=== PATIENT | female | born 1950 | race Caucasian/White ===

== ENCOUNTER 2017-08-27 08:12 | Outpatient (CLI) | payer MEDICARE, BC ==
--- NOTE | 2017-08-27 09:17 | MRI ---
MRI OF THE RIGHT KNEE WITHOUT CONTRAST: INDICATION: Right knee pain. COMPARISON: None. FINDINGS: There is mild osteoarthrosis involving the right knee with predominantly affecting the patellofemora l and medial femoral tibial joint compartments. There is a complex but predominantly horizontally or iented tear involving the body and posterior horn of the medial meniscus. There is a horizontally or iented tear involving the body of the posterior horn of the lateral meniscus. There is suspected rad ial tear involving the posterior root of the lateral meniscus on image 14 of series 5. The ACL, PCL, MCL, and LCLC are intact. There is subchondral cyst-like abnormality seen within the proximal fibul a as well as within the patella. The MCL, LCLC, and extensor mechanism are intact. IMPRESSION: 1. Mild osteoarthrosis of the right knee. 2. Medial and lateral meniscal tears. POS: [facility]
== END 2017-08-27 08:13 | disposition home or self-care (01) ==
LOC: TBSIIMAG 08:12
PROVIDERS: ATTEND Orthopaedic Surgery
DX: M25.561 Pain in right knee (principal); M17.11 Unilateral primary osteoarthritis, right knee; S83.241A Other tear of medial meniscus, current injury, right knee, initial encounter; S83.281A Other tear of lateral meniscus, current injury, right knee, initial encounter

== ENCOUNTER 2017-09-29 10:09 | Outpatient (CLI) | payer MEDICARE, BC ==
[2017-09-29 11:52] LABS: #Eosinphils 0.3 thou/uL (0.0-0.7); #Lymphocytes 2.5 thou/uL (1.20-3.40); #Monocytes 0.6 thou/uL (0.11-0.59); #Neutrophils 4.3 thou/uL (1.40-6.50); %Basophils 0.5 % (0.0-1.0); %Eosinophils 3.3 % (0.0-10.0); %Lymphocytes 32.2 % (21.0-51.0); %Monocytes 7.9 % (0.0-10.0); %Neutrophils 56.1 % (42.0-75.0); Hemoglobin 14.2 g/dL (12.0-16.0); Mean Corpuscular HGB CONC 32.4 g/dL (32.0-36.0); Mean Corpuscular Hemoglobin 30.5 pg (27.0-31.0); Mean Corpuscular Volume 94.2 fl (81.0-99.0); Mean Platelet Volume 7.9 fL (7.4-10.4); Platelet Count 235 thou/uL (130-400); Red Blood Cell (RBC) Count 4.66 mill/uL (4.20-5.40); White Blood Cell (WBC) Count 7.7 thou/uL (4.8-10.8)
[2017-09-29 12:08] LABS: Anion Gap 15 mmol/L (10-20); BUN (Urea Nitrogen) 11 mg/dL (9.8-20.1); Calc. Creatinine Clearance 0 mL/min (70-130); Calcium 9.2 mg/dL (7.8-10.44); Carbon Dioxide 28 mmol/L (23-31); Chloride 103 mmol/L (98-107); Estimated GFR-MDRD 73; Glucose 153 mg/dL (80-115); Potassium 4.6 mmol/L (3.5-5.1); Sodium 141 mmol/L (136-145)
--- NOTE | 2017-09-30 23:37 | EKG ---
Test Reason : Blood Pressure : / mmHG Vent. Rate : 058 BPM Atrial Rate : 058 BPM P-R Int : 152 ms QRS Dur : 082 ms QT Int : 418 ms P-R-T Axes : 016 032 039 degrees QTc Int : 410 ms Sinus bradycardia Cannot rule out Anterior infarct , age undetermined Abnormal ECG When compared with ECG of 29-JAN-2017 13:43, No significant change was found Confirmed by Serge RAO ([id number]) on 09/30/2017 11:37:10 PM Referred By: GARETH Confirmed By:Serge RAO
== END 2017-09-29 10:10 | disposition home or self-care (01) ==
LOC: LABBT 10:09
PROVIDERS: ATTEND Orthopaedic Surgery
DX: Z01.812 Encounter for preprocedural laboratory examination (principal); Z01.810 Encounter for preprocedural cardiovascular examination; S83.206A Unspecified tear of unspecified meniscus, current injury, right knee, initial encounter; M17.12 Unilateral primary osteoarthritis, left knee
CPT/HCPCS: 80048; 85025; 93005; 93010

== ENCOUNTER 2017-10-01 06:04 | Day surgery (SDC) | payer MEDICARE, BC ==
[2017-09-29 10:40] VITALS: BMI 42.7
[2017-10-01] MEDS ORDERED: Bupivacaine PF 0.5% 30 ML VIAL ONE (06:25)
[2017-10-01] MEDS ORDERED: methylPREDNISolone Acetate 40 mg/ml Vial ONE (06:25)
[2017-10-01] MEDS ORDERED: Fentanyl 100 MCG/2 ML VIAL ONE (06:29)
[2017-10-01] MEDS ORDERED: Midazolam HCl 2 mg/2 ml Vial ONE (06:29)
[2017-10-01] MEDS ORDERED: Diprivan 20 ML ONE (06:56)
[2017-10-01] MEDS ORDERED: CEFAZOLIN/Water 2 GM/20 ML SYRINGE ONE (06:59)
--- NOTE | 2017-10-01 09:16 | OP ---
DATE OF PROCEDURE: 10/01/2017 PREOPERATIVE DIAGNOSIS: Right knee medial meniscus tear. POSTOPERATIVE DIAGNOSES: 1. Right knee medial and lateral meniscal tears. 2. Global grade 2 chondromalacia, medial femoral condyle. 3. Grade 2 chondromalacia of patella. PROCEDURE: 1 Right knee arthroscopy with partial medial and lateral menisectomies SURGEON: Porfirio Pizarro M.D. MACHINED PARTS QUALITY INSPECTOR: None. BLOOD LOSS: Minimal. COMPLICATIONS: None. ANESTHESIA: The patient had general anesthetic. She also had local knee block. DISPOSITION: She went to the recovery room in stable condition. INDICATIONS: This is a 66-year-old active female, who comes in complaining of sharp pain and swelling in the knee. An MRI scan confirmed that Ms. Maldonado had a significant posterior horn medial meniscus tear with a flap component, and at this time, she opted to have surgery. DESCRIPTION OF PROCEDURE: After all appropriate consent forms were explained and signed, she was taken to the operating room and at this time was given general anesthetic. Once the level of anesthesia was appropriate, she was taken back to the operating room and at this time was given general anesthetic. Tourniquet was placed on the right thigh, and leg was placed in an arthroscopic leg haynes. The limb was then prepped and draped in standard surgical fashion. Limb was exsanguinated, and tourniquet taken up to 300 mmHg. An inferolateral portal was established, and the scope was placed into the knee joint. Needle localization technique was then used to make a medial working portal. Diagnostic arthroscopy commenced in the notch. The ACL and PCL were probed and found to be intact. There was a small bone spur at the ACL insertion. This was taken down with the shaver. The medial femoral condyle and medial tibial plateau were evaluated. There was just a global grade 2, no exposed bone, no significant cartilage flaps. There was a large complex tear of the posterior horn and body of the medial meniscus, and a partial meniscectomy was performed using meniscal biter and shaver. Lateral compartment was entered. There were a couple areas of the lateral meniscus, which were torn including the body and posterior horn/root. Again, partial meniscectomy was performed back to a stable base. Overall, in that compartment , the cartilage was in good condition. The gutters were swept through, and no loose bodies were noted in the medial gutter. The lateral gutter had some cartilaginous loose bodies, which were removed with a suction shaver. We then evaluated the patellofemoral joint. The patella had some grade 2 chondromalacia with some unstable chondral flaps, which were taken down gently with the shaver. Overall, the trochlea did have some early chondromalacia with no significant treatments needed. At this time, the scope was removed, the knee was drained. Portals were closed with simple nylon stitch. A bulky sterile dressing was applied, and the tourniquet was let down. Toes pinked up nicely. The patient was awakened and taken to recovery room in stable condition. All counts were correct at the end of the case. She received preoperative IV antibiotics. SIENA
== END 2017-10-01 10:20 | disposition home or self-care (01) ==
LOC: SDC 06:04
PROVIDERS: ATTEND Orthopaedic Surgery
PROC: 0SBC4ZZ Excision of Right Knee Joint, Percutaneous Endoscopic Approach (ICD-10-PCS; principal; 2017-10-01)
PROC: 0SBC4ZZ Excision of Right Knee Joint, Percutaneous Endoscopic Approach (ICD-10-PCS; 2017-10-01)
DX: S83.231A Complex tear of medial meniscus, current injury, right knee, initial encounter (principal); S83.281A Other tear of lateral meniscus, current injury, right knee, initial encounter; M22.41 Chondromalacia patellae, right knee; I10 Essential (primary) hypertension; G43.909 Migraine, unspecified, not intractable, without status migrainosus; F41.9 Anxiety disorder, unspecified; G47.30 Sleep apnea, unspecified; M81.0 Age-related osteoporosis without current pathological fracture; F17.210 Nicotine dependence, cigarettes, uncomplicated; Z88.8 Allergy status to other drugs, medicaments and biological substances; Z87.442 Personal history of urinary calculi; Z98.1 Arthrodesis status; Z90.711 Acquired absence of uterus with remaining cervical stump; Z98.890 Other specified postprocedural states; Z90.49 Acquired absence of other specified parts of digestive tract; Z80.9 Family history of malignant neoplasm, unspecified; Z79.82 Long term (current) use of aspirin; Z79.899 Other long term (current) drug therapy; Z79.51 Long term (current) use of inhaled steroids
CPT/HCPCS: 29880; 97139; G8978; G8979; G8980; J1030; J2250; J2704; J3010; S0020

== ENCOUNTER 2017-12-29 07:36 | Outpatient (CLI) | payer MEDICARE, BC ==
--- NOTE | 2017-12-29 09:18 | MRI ---
MRI LUMBAR SPINE WITHOUT CONTRAST: Date: 12/29/17 HISTORY: M54.16, lumbar radiculopathy. COMPARISON: Lumbar spine radiograph from 2011. FINDINGS: The aortic contour is normal. No aneurysmal dilatation. Small cyst of ovarian remnants. Paraspinal muscular atrophy, mild to moderate, and symmetric. No hydronephrosis. Posterior spinal fusion L4-S1. No listhesis. Adequate osseous corporation of the disc spacers. Background marrow signal is normal. Levels are as follows: T12-L1: Mild facet arthrosis. No neural foraminal or spinal canal narrowing. L1-2: Low grade disc bulge. No neural foraminal or spinal canal narrowing. L2-3: Mild disc desiccation and height loss. Mild circumferential disc bulge. Mild facet arthropathy. The s gamaliel canal measures approximately 6.0 mm. Mild bilateral neural foraminal narrowing. L3-4: Moderate degenerative disc space height loss. There is circumferential disc bulge. Moderate facet art hropathy. There is ligamentum flavum hypertrophy. The spinal canal is narrowed approximately 5.0 mm. There is some crowding of the nerve roots at this level. There is moderate left and moderate right-si ded neural foraminal narrowing with abutment of the exiting right nerve root. L4-5: No significant neural foraminal or spinal canal narrowing. L5-S1; No neural foraminal or spinal canal narrowing. IMPRESSION: Multilevel spondylosis as described above, worst at L3-4 and L2-3, with neural foraminal and spinal c anal narrowing. POS: [facility]
== END 2017-12-29 07:37 | disposition home or self-care (01) ==
LOC: TBSIIMAG 07:36
PROVIDERS: ATTEND Anesthesiology Pain Medicine
DX: M47.26 Other spondylosis with radiculopathy, lumbar region (principal); M48.061 Spinal stenosis, lumbar region without neurogenic claudication; M99.83 Other biomechanical lesions of lumbar region
CPT/HCPCS: 72148

== ENCOUNTER 2018-02-27 16:23 | Inpatient (IN) | payer MEDICARE, BC ==
[2018-02-27] MEDS ORDERED: Morphine 10 MG/ML VIAL ONE ×2 (17:14→18:02)
[2018-02-27] MEDS ORDERED: Ondansetron ODT 8 MG TAB ONE (17:16)
[2018-02-27 17:36] LABS: #Eosinphils 0.2 thou/uL (0.0-0.7); #Lymphocytes 2.1 thou/uL (1.20-3.40); #Monocytes 0.5 thou/uL (0.11-0.59); #Neutrophils 6.5 thou/uL (1.40-6.50); %Basophils 0.4 % (0.0-1.0); %Lymphocytes 22.5 % (21.0-51.0); %Monocytes 5.8 % (0.0-10.0); %Neutrophils 69.4 % (42.0-75.0); Hemoglobin 14.1 g/dL (12.0-16.0); Mean Corpuscular HGB CONC 33.5 g/dL (32.0-36.0); Mean Corpuscular Hemoglobin 30.5 pg (27.0-31.0); Mean Corpuscular Volume 91.2 fL (78.0-98.0); Mean Platelet Volume 7.5 fL (7.4-10.4); Platelet Count 258 thou/uL (130-400); RBC Distribution Width 12.9 % (11.5-14.5); Red Blood Cell (RBC) Count 4.62 mill/uL (4.20-5.40); White Blood Cell (WBC) Count 9.3 thou/uL (4.8-10.8)
[2018-02-27 17:47] LABS: Bilirubin Small (Negative); Blood, Urine Large (Negative); Clarity TURBID (Clear); Glucose, Urine (Dipstick) Negative (Negative); Leukocyte Small (Negative); Nitrite Negative (Negative); Protein, Urine (Dipstick) 100 mg/dL (Neg-Trace); Specific Gravity, Urine 1.026 (1.002-1.036)
[2018-02-27 17:50] LABS: Bacteria/HPF None Seen HPF (None Seen); Hyaline Casts/LPF 4-6 HYALINE CAST LPF (0-3 Hyaline); Pathc Cast-AUWi Flag 1.71 (0-2.49); RBC/HPF GREATER THAN 50-TNTC HPF (0-3)
[2018-02-27 17:56] LABS: ALT (SGPT) 21 U/L (8-55); AST (SGOT) 18 U/L (5-34); Albumin 4.1 g/dL (3.4-4.8); Alkaline Phosphatase 187 U/L (40-150); Anion Gap 15 mmol/L (10-20); BUN (Urea Nitrogen) 14 mg/dL (9.8-20.1); Bilirubin, Total 0.3 mg/dL (0.2-1.2); Calc. Creatinine Clearance 0 mL/min (70-130); Calcium 9.3 mg/dL (7.8-10.44); Carbon Dioxide 26 mmol/L (23-31); Chloride 105 mmol/L (98-107); Estimated GFR-MDRD 63; Globulin 2.7 g/dL (2.4-3.5); Glucose 164 mg/dL (80-115); Potassium 4.1 mmol/L (3.5-5.1); Protein, Total 6.8 g/dL (6.0-8.3); Sodium 142 mmol/L (136-145)
[2018-02-27] MEDS ORDERED: Ketorolac Tromethamine 30 MG/ML VIAL ONE (18:03)
[2018-02-27 18:34] LABS: PTT 31.7 SEC (22.9-36.1); Prothrombin Time 13.3 SEC (12.0-14.7)
--- NOTE | 2018-02-27 19:34 | CT ---
CT ABDOMEN NONCONTRAST CT PELVIS NONCONTRAST: (urolithiasis protocol) DATE: 02/27/18 TIME: 5:45 p.m. HISTORY: 67-year-old female with history of calculus of kidney presents with acute right flank pain. COMPARISON: 01/22/17 TECHNIQUE: IV injection of iodinated contrast media: none Oral contrast media: none FINDINGS: Other than for urolithiasis, the lack of IV and oral contrast limits the evaluation. Previously, there was a calculus lodged in the left mid ureter causing left hydronephrosis. That calc ulus is no longer present in the left ureter, and there is currently no left sided hydronephrosis. Ho wever, one of the right renal lower pole renal calculi on the previous study has now migrated to the right proximal ureter at the upper L4 level. It measures 6 x 6 x 3 mm. It causes a new finding of mod erate dilation of the extrarenal pelvis, mild to moderate dilation of right calyces, a small amount o f right perirenal fluid, and right nephromegaly. The perirenal fluid may represent extravasated urine due to pyelocalyceal blowout. There are at least two other calculi in the right kidney, approximatel y 2 mm in size each. There are a few calculi in the left renal upper and lower poles, on the order of 2 mm in size each. The urinary bladder is empty. Within limitations of a noncontrast scan, no major obvious pathology is identified involving the abdo satinder aorta, adrenals, or spleen. There is mild hepatic steatosis and mild atrophy of the pancreas. Numerous diverticula through the sigmoid colon and descending colon, without signs of acute diverticu litis. No ascites or pneumoperitoneum. No small bowel dilation. Bilateral pedicle screws and vertical interlocking rods and interbody cages, at lower lumbar spine. IMPRESSION: 1. A 6 mm calculus lodged at the right proximal ureter causing obstructive uropathy, with mild t o moderate right hydronephrosis and right perirenal fluid. 2. Bilateral nephrolithiasis. 3. Hepatic steatosis. 4. Colonic diverticulosis without diverticulitis. MICHELLE Borden POS: [facility]
--- NOTE | 2018-02-27 19:41 | RAD ---
RADIOGRAPH CHEST 1 VIEW: 02/27/18 HISTORY: 67-year-old female for preoperative evaluation. FINDINGS: There are no air space densities, pulmonary edema, pneumothorax, or cardiomegaly. The lateral costop hrenic angles are sharp. IMPRESSION: No acute cardiopulmonary findings. alexandro [] POS: [facility]
[2018-02-27] MEDS ORDERED: Gabapentin 300 MG CAP PO SCH (21:00)
[2018-02-27] MEDS ORDERED: HYDROcodone/Acetaminophen 10/325 mg Tablet PO PRN (21:00)
[2018-02-27] MEDS ORDERED: Atorvastatin Calcium 40 MG TAB PO SCH (21:00)
[2018-02-27] MEDS ORDERED: Ondansetron HCl/PF 4 MG/2 ML Vial IVP PRN (21:02)
[2018-02-27] MEDS: Carvedilol 6.25 MG TAB PO SCH (22:30)
[2018-02-27 23:36] VITALS: BMI 44.0
[2018-02-27 23:43] LABS: Bilirubin Small (Negative); Blood, Urine Large (Negative); Clarity CLOUDY (Clear); Glucose, Urine (Dipstick) Negative (Negative); Leukocyte Small (Negative); Nitrite Negative (Negative); Protein, Urine (Dipstick) 30 mg/dL (Neg-Trace)
[2018-02-27 23:48] LABS: Bacteria/HPF None Seen HPF (None Seen); WBC/HPF 0-3 HPF (0-3)
[2018-02-27 23:50] LABS: Pathc Cast-AUWi Flag 9.01 (0-2.49); Yeast-AUWi Flag 176.6 (0-25.0)
[2018-02-28 00:05] LABS: Manual Microscopic Reviewed? No Path Casts Seen; RBC/HPF GREATER THAN 50-TNTC HPF (0-3); Yeast-All Forms None Seen HPF (None Seen)
--- NOTE | 2018-02-28 02:34 | CON ---
DATE OF CONSULTATION: 02/27/2018 REASON FOR CONSULTATION: Intractable pain due to right proximal ureteral calculi. PRIMARY UROLOGIST: Mino Black M.D. HISTORY OF PRESENT ILLNESS: Ms. Maldonado is a 67-year-old morbidly obese female with history of recurrent kidney stone, followed by Dr. Black. The patient called our office late this afternoon, she is on chronic narcotics due to back pain on Percocet. She states that her pain and her right lower back started at 2:00 while shopping due to intractable discomfort which she rated 30/10 on the pain scale. She presented to the emergency room. She has been provided appropriate pain medication and currently rates her pain 0/10. She denies history of nausea, vomiting, fever or gross hematuria. CT of the abdomen and pelvis obtained demonstrates right hydronephrosis, with perinephritic stranding. Per ER staff, the patient has had no fever, no leukocytosis. PAST MEDICAL HISTORY: Includes hypertension, migraines, hemangioma, arthritis, anxiety, anemia, diverticulosis, obstructive sleep apnea, hypercholesterolemia, recurrent kidney stone, osteoporosis. PAST SURGICAL HISTORY: Lumbar fusion, hysterectomy, tonsillectomy, sinus surgery, laparoscopic cholecystectomy, status left ureteroscopy, laser lithotripsy, 6 x 26 double-J ureteral stent placement 01/[address] Black, right knee meniscectomy 09/2017. FAMILY HISTORY: Positive for heart disease, asthma. SOCIAL HISTORY: She is a smoker, half pack a day for 30 years. Denies excessive caffeine intake. She is retired, has 2 children, . ALLERGIES: No known drug allergies PHYSICAL EXAMINATION: Per ER staff, VITAL SIGNS: Stable. GENERAL: The patient appears to be resting comfortably, denies pain at this time. HEENT: Grossly unremarkable. HEART: Regular rate. LUNGS: Clear. ABDOMEN: Morbidly obese, protuberant. There is a midline laparotomy incision. There is no gross CVA tenderness on physical exam. GENITOURINARY: Deferred at this time. EXTREMITIES: No cyanosis, clubbing or edema. PERTINENT LABS AND IMAGING: Prior CT 01/2017 demonstrated 7 mm proximal left ureteral calculi with bilateral nonobstructing renal calculus, prior stone analysis demonstrating calcium moiety 95% monohydrate. Current presenting white count is 9, hemoglobin 14, platelet 258, creatinine 0.89. Urinalysis demonstrates 4-6 rbc's, greater than 50 wbc's, 100 protein, 7- 10 epithelial, no bacteria, negative nitrites. CT of the abdomen and pelvis stone protocol dated 02/27/2018 which I reviewed myself demonstrates no evidence of left hydronephrosis. There are multiple left punctate renal calculi, approximately 3-4 in number, largest in the left upper pole approximately 3 mm. Right kidney does demonstrate hydronephrosis, moderate in nature secondary to 6 x 6 x 3 mm stone at the level of 4. Per official report, there is a mild amount of perirenal fluid. This is minimal. There is a nephromegaly present. Hepatic steatosis. IMPRESSION/PLAN: Ms. Maldonado is a 67-year-old morbidly obese female with history of recurrent kidney stone, presents with right intractable flank pain due to proximal ureteral calculi. Currently, her pain is controlled with IV pain medication. The patient likely also has narcotic tolerance that she is on chronic Percocet. The patient currently is stable. She is scheduled for cysto right retrograde stent placement tomorrow morning. n.p.o. after midnight. Informed patient that if she is feeling better with ureteral stent tomorrow, will be discharged and will follow up with Dr. Black for elective ureteroscopy , laser lithotripsy. As her initial UA is contaminated, we will order straight cath, UA, C and S. N.p.o. after midnight. [facility]
[2018-02-28 04:53] LABS: #Basophils 0.1 thou/uL (0.0-0.2); #Eosinphils 0.2 thou/uL (0.0-0.7); #Lymphocytes 2.6 thou/uL (1.20-3.40); #Monocytes 0.7 thou/uL (0.11-0.59); #Neutrophils 5.1 thou/uL (1.40-6.50); %Basophils 0.6 % (0.0-1.0); %Eosinophils 2.1 % (0.0-10.0); %Lymphocytes 30.1 % (21.0-51.0); %Neutrophils 59.2 % (42.0-75.0); Hemoglobin 12.3 g/dL (12.0-16.0); Mean Corpuscular HGB CONC 33.2 g/dL (32.0-36.0); Mean Corpuscular Hemoglobin 30.4 pg (27.0-31.0); Mean Corpuscular Volume 91.6 fL (78.0-98.0); Mean Platelet Volume 7.4 fL (7.4-10.4); Platelet Count 209 thou/uL (130-400); RBC Distribution Width 12.9 % (11.5-14.5); Red Blood Cell (RBC) Count 4.03 mill/uL (4.20-5.40); White Blood Cell (WBC) Count 8.6 thou/uL (4.8-10.8)
[2018-02-28 05:18] LABS: Anion Gap 13 mmol/L (10-20); BUN (Urea Nitrogen) 18 mg/dL (9.8-20.1); Calc. Creatinine Clearance 108 mL/min (70-130); Carbon Dioxide 26 mmol/L (23-31); Chloride 105 mmol/L (98-107); Estimated GFR-MDRD 66; Glucose 133 mg/dL (80-115); Potassium 4.2 mmol/L (3.5-5.1); Sodium 140 mmol/L (136-145)
--- NOTE | 2018-02-28 06:06 | HP ---
PRIMARY CARE PHYSICIAN: Dr. Gutierrez CODE STATUS: FULL CODE. TIME OF EVALUATION: 2100 hours. CHIEF COMPLAINT: Right flank pain. HISTORY OF PRESENT ILLNESS: This is a 67-year-old female patient with past medical history of multiple kidney stones in the past, also has a history of hypertension. The patient came to the hospital after having severe right flank pain that has been on since 2:00 p.m. from the very beginning, the pain was 10/ 10, associated with sweating, nausea, no clear triggers, no alleviating factors. CT scan was done. The patient shows a 6-mm calculus lodged at the right proximal ureter causing obstructive uropathy with [id number] right hydronephrosis and right perirenal fluid. For that reason, Urology was being consulted and is planning for the patient to have cystoscopy, stent placement tomorrow morning. REVIEW OF SYSTEMS: Constitutional: No fever, no chills, generalized weakness. Respiratory: No cough, no sputum production, no shortness of breath. Cardiovascular: No chest pain, palpitation, shortness of breath. Gastrointestinal: No abdominal pain, no nausea, no vomiting, no diarrhea. Central Nervous System: No dizziness, headache, or feeling lightheaded. Genitourinary: No burning on urination. Extremities: No leg swelling. All other systems reviewed were negative except for the findings mentioned above. PAST MEDICAL HISTORY: Positive for hypertension and kidney stones. PAST SURGICAL HISTORY: Back surgery x4, cholecystectomy, hysterectomy. PSYCHIATRIC HISTORY: Includes depression. SOCIAL HISTORY: The patient uses tobacco. Denies drug use. Denies alcohol use. ALLERGIES: Latex allergies and metformin. REPORTED MEDICATIONS: Carvedilol 6.25 mg orally b.i.d., ramipril 5 mg orally daily, atorvastatin 40 mg orally daily, duloxetine 60 mg orally daily, aspirin 81 mg orally daily, Vicodin 300 mg every 8 hours daily, gabapentin 300 mg orally. PHYSICAL EXAMINATION: VITAL SIGNS: On presentation, blood pressure 182/82 systolic with a pulse 71, respiratory rate 18, temperature 97.9, pain 10/10 on presentation, saturation 93 on room air. GENERAL APPEARANCE: She is alert, oriented, not in distress and pain medication hasalleviated the pain. HEENT: Eyes: Normal conjunctivae. Moist oral mucosa. Anicteric. NECK: No JVD. RESPIRATORY: Bilateral air entry. No rales, no wheezing. Symmetrical expansion. CARDIOVASCULAR: Normal rate, regular rhythm. No murmurs, no gallop, no edema. ABDOMEN: Soft. Patient has tenderness in the right side alleviated by pain medication. MUSCULOSKELETAL: Baseline range of motion and strength. No tenderness. SKIN: Warm and intact. No pallor, no rash, no redness. NEUROLOGIC: Baseline sensorium. No evidence of any new focal weakness. Baseline speech. Cranial nerves seemed to be intact. PSYCHIATRIC: Good mood. No anxiety. Oriented, optimal judgment. LABORATORY DATA: Reviewed. The patient had white count 9.3, hemoglobin 14.1, MCV 91, platelet count 158,000. PT 13, INR 1, PTT 31. Chemistry: Sodium 142, potassium 4.1, carbon dioxide 26, anion gap 15, BUN 14, creatinine 0.8, GFR 63, glucose 164, calcium 9.3. LFTs are normal. The urine was reviewed, the patient has white count that was normal 2 to 3. The patient has hematuria with rbc's greater than 50, too numerous to count. IMAGING: CAT scan; 1. A 6-mm calculus lodged in the right proximal ureter causing obstructive uropathy with [id number] right hydronephrosis and right perirenal fluid. 2. Bilateral nephrolithiasis. 3. Hepatic steatosis. 4. Colonic diverticulosis without diverticulitis. Chest x-ray reported no acute cardiopulmonary problems. ASSESSMENT AND PLAN: The patient was admitted with the following medical condition. 1. Right nephrolithiasis with urinary obstruction, as seen on the CT of the abdomen, urology has seen the patient, planned to place a stent in the morning. _ Continue all previous medication, pain meds,continue IV fluids. 2. Hematuria. Likely related to kidney stone. We will treat the underlying condition. 3. Uncontrolled blood pressure with systolic 187, likely secondary to acute physical distress, we will treat the underlying condition, we will reconcile home medications and treat p.r.n. for optimal control. 4. Deep venous thrombosis prophylaxis. YEHUDAD
[2018-02-28] MEDS: Carvedilol 6.25 MG TAB PO SCH (06:09)
[2018-02-28] MEDS ORDERED: Midazolam HCl 2 mg/2 ml Vial ONE (07:20)
[2018-02-28] MEDS ORDERED: Fentanyl 100 MCG/2 ML VIAL ONE ×2 (07:20→07:54)
[2018-02-28] MEDS ORDERED: Morphine 4 MG/ML VIAL ONE (07:21)
[2018-02-28] MEDS ORDERED: Iothalamate Meglumine 60% 50 ML VIAL FS ONE (07:36)
[2018-02-28] MEDS ORDERED: Levofloxacin 500 mg/D5W 100 ml Premix Bag ONE (07:41)
[2018-02-28] MEDS ORDERED: HYDROmorphone 0.5 MG/0.5 ML SYRINGE ONE (07:58)
--- NOTE | 2018-02-28 08:44 | RAD ---
RETROGRADE IVP: COMPARISON: CT abdomen/pelvis 02/27/18. FINDINGS/IMPRESSION: Multiple limited intraoperative fluoroscopic views from a retrograde IVP were submitted for interpret ation. Hardware is seen in the lumbar spine. No obvious calcifications are seen projecting over eit her renal shadow. The calcifications seen in the proximal ureter on CT is difficult to visualize on t he fluoroscopic images. A double-J ureteral stent is eventually placed in the right renal collecting system. POS: [facility]
[2018-02-28] MEDS ORDERED: Oxybutynin 5 MG TAB PO PRN (08:46)
[2018-02-28] MEDS ORDERED: Phenazopyridine HCl 97.5 MG TABLET PO PRN (08:46)
[2018-02-28] MEDS ORDERED: Promethazine HCl 25 MG/ML VIAL SLOW IVP PRN (08:55)
[2018-02-28] MEDS ORDERED: Ondansetron HCl/PF 4 MG/2 ML Vial IVP PRN (08:55)
[2018-02-28] MEDS ORDERED: Promethazine HCl 25 MG/ML VIAL IM PRN (08:55)
[2018-02-28] MEDS ORDERED: Prevnar 13-Val Conj/PF 0.5 ML SYRINGE IM ONE (09:00)
[2018-02-28] MEDS ORDERED: Ramipril 5 MG CAP PO SCH (09:00)
[2018-02-28] MEDS ORDERED: Enoxaparin Sodium 40 MG/0.4 ML SYRINGE SC SCH (09:00)
[2018-02-28] MEDS ORDERED: DULoxetine 60 MG CAP PO SCH (09:00)
[2018-02-28 11:50] VITALS: BP 143/81; TEMP 97.5
--- NOTE | 2018-02-28 12:50 | OP ---
DATE OF SERVICE: 02/28/2018 PREOPERATIVE DIAGNOSES: 1. A 67-year-old female with history of recurrent kidney stone, right hydronephrosis secondary to proximal ureteral calculi. 2. Intractable pain. POSTOPERATIVE DIAGNOSES: 1. A 67-year-old female with history of recurrent kidney stone, right hydronephrosis secondary to proximal ureteral calculi. 2. Intractable pain. PROCEDURE: Cystoscopy, right retrograde 6 x 24 stent placement. SURGEON: Mari Mcconnell D.O. ANESTHESIA: General. COMPLICATIONS: None apparent. DISPOSITION: Recovery room in stable condition. INDICATIONS FOR THE PROCEDURE AND HISTORY: Ms. Maldonado is a 67-year-old female with history of recurrent kidney stone followed by Dr. Black. The patient presented to the emergency room late yesterday evening due to intractable right flank pain. She presents for cystoscopy, right retrograde stent placement. She has been fully informed regarding indications for ureteral stent, that elective ureteroscopy, laser lithotripsy will be scheduled at a later date at the discretion of Dr. Black. Urine culture is pending. Risks, complications and indications reviewed with her in detail. The patient has been fully informed regarding expectation of discomfort that can be present with indwelling ureteral stent. She desires to proceed. DESCRIPTION OF THE PROCEDURE: After an informed consent is signed, the patient is taken to the operating room, placed in a dorsal lithotomy position with the genital area prepped and draped in usual surgical sterile fashion. A 21-Ivorian cystoscope was utilized for cystoscopy. Upon entering the bladder, mild debris was noted. The UO's are located in normal anatomical location. There was no evidence of bladder tumor. No bladder stones. The right UO was intubated with a 5 Ivorian open-ended catheter and using 1:1 diluted contrast, retrograde pyelogram performed. There was a subtle filling defect in the right proximal ureter consistent with stone and hydronephrosis. There was no extravasation of contrast. A 0.35 sensor wire was then placed into the right upper pole. A 6 x 24 double-J ureteral stent passed without difficulty. The wire was then completely removed and bladder emptied. She will be transferred back to the floor. Patient can be discharged home when tolerated with oral pain medication. The patient is instructed to call our office on Friday to schedule a followup appointment with Dr. Black. Prescription is in chart for [place] , ciprofloxacin for 3 days until culture can be reviewed, AZO over the counter p.r.n., VESIcare today for bladder spasm. MTDD
--- NOTE | 2018-03-01 00:06 | DIS ---
DATE OF ADMISSION: 02/27/2018 DATE OF DISCHARGE: 02/28/2018 CONDITION AT THE TIME OF DISCHARGE: Stable and improved. DISCHARGE DIAGNOSES: 1. Right-sided hydronephrosis and nephrolithiasis, status post cystoscopy and right ureteral stent p lacement. 2. Renal colic. 3. Hypertension. 4. History of recurrent renal stones. DISCHARGE MEDICATIONS: Resume home medications as per the H&P dictated by my colleague, Dr. Burgess . New medications as follows: Ciprofloxacin 500 mg p.o. q.12 hours for 3 days, VESIcare 5 mg daily, [place] as needed, and phenazopyridine 97.5 mg t.i.d. p.r.n. PRIMARY CARE PHYSICIAN: Basilio Ames M.D. INHOUSE CONSULTATIONS: Neurology, Dr. Mari Mcconnell. PROCEDURES DONE IN THE HOSPITAL: Include retrograde pyelogram and cystoscopy with right ureteral berta nt placement. CT scan of the abdomen and pelvis upon presentation, which shows a 6 mm calculus lodge d at the right proximal ureter causing obstructive uropathy with mild to moderate right-sided hydrone phrosis and bilateral nephrolithiasis and hepatic steatosis and colonic diverticulosis without divert iculitis. HISTORY OF PRESENTING ILLNESS: Ms. Maldonado is a very pleasant 67-year-old female with known history of multiple recurrent stones, who presented to the emergency room with complaints of severe right-nayeli ed renal colic and flank pain. Upon presentation, her urinalysis was unrevealing. She did have john turia with rbc's greater than [address] scan was done in the emergency room which showed 6 mm calculu s lodged in the right side with right-sided hydronephrosis. Urology was consulted and Internal Medic ine team was consulted for admission. Please see admission history and physical for further details. The patient was seen by Urology, Dr. Mari Mcconnell, earlier today morning and was taken to the OR . She underwent a successful right-sided ureteric stent placement. She underwent cystoscopy and ret rograde pyelogram as well. There was a subtle filling defect in the right proximal ureter consistent with stone and hydronephrosis. Stent was placed successfully and I saw the patient once she was angela k in the room. The patient is doing well and is eager to go home. She denies any nausea, vomiting, diarrhea, pain o r dysuria, frequency or hematuria. She is hemodynamically stable and will be discharged home. She h as been cleared by Urology for discharge as well. Her urine has been sent for culture and the result s are pending at this time. She was empirically treated with antibiotics and was given prescription for the same by Urology. She was also started on AZO as needed and VESIcare by Dr. Mcconnell. She was seen and examined prior to discharge. PHYSICAL EXAMINATION: VITAL SIGNS: This morning, temperature 97.5, pulse of 61, respirations 18, saturating 94% on room ai r, blood pressure 143/81. GENERAL: No acute distress, awake, alert, and oriented x3. CHEST: Clear to auscultation bilaterally without any wheezing, rales or rhonchi. Rate and rhythm is regular without any murmur, rubs or gallops. She is discharged under the care of her family members, who were present in the room. Discharge plan was discussed with the patient, who verbalized understanding. LABORATORY DATA: CBC unremarkable. Serum chemistry shows blood sugar of 133, otherwise unremarkable . Urine culture pending at the time of discharge, no growth until date.
== END 2018-02-28 12:45 | disposition home or self-care (01) | DRG 694 ==
LOC: ERS 16:23 → T4-B 20:21
PROVIDERS: ADMIT Family Medicine; ATTEND Family Medicine
PROC: 0T768DZ Dilation of Right Ureter with Intraluminal Device, Via Natural or Artificial Opening Endoscopic (ICD-10-PCS; principal; 2018-02-28)
PROC: BT1D1ZZ Fluoroscopy of Right Kidney, Ureter and Bladder using Low Osmolar Contrast (ICD-10-PCS; 2018-02-28)
DX: N13.2 Hydronephrosis with renal and ureteral calculous obstruction (principal); Z68.41 Body mass index [BMI] 40.0-44.9, adult; I10 Essential (primary) hypertension; E66.01 Morbid (severe) obesity due to excess calories; R31.9 Hematuria, unspecified; G47.33 Obstructive sleep apnea (adult) (pediatric); M19.90 Unspecified osteoarthritis, unspecified site; F41.9 Anxiety disorder, unspecified; M81.0 Age-related osteoporosis without current pathological fracture; F17.210 Nicotine dependence, cigarettes, uncomplicated; Z98.1 Arthrodesis status; Z87.440 Personal history of urinary (tract) infections; Z98.890 Other specified postprocedural states; Z87.19 Personal history of other diseases of the digestive system
CPT/HCPCS: 36415; 71045; 74176; 74420; 80048; 80053; 81003; 81015; 85025; 85610; 85730; 87086; 90471; 90670; 93005; 96361; 96365; 96375; 96376; A4353; C1758; C1769; G0009; J1170; J1885; J1956; J2250; J2270; J3010; Q9961

== ENCOUNTER 2018-03-05 07:47 | Day surgery (SDC) | payer MEDICARE, BC ==
[2018-03-04 14:01] VITALS: BMI 42.7
[2018-03-05] MEDS ORDERED: cefTRIAXone\\ROCEPHIN 1 GM VIAL ONE (09:43)
[2018-03-05] MEDS ORDERED: Sodium Chloride 0.9% 100 ML ONE (09:43)
[2018-03-05] MEDS ORDERED: cefTRIAXone\\ROCEPHIN 1 GM in Sodium Chloride 0.9% 100 ML IVPB SCH (09:45)
[2018-03-05] MEDS ORDERED: Midazolam HCl 2 mg/2 ml Vial ONE ×2 (09:58→10:09)
[2018-03-05] MEDS ORDERED: Fentanyl 250 MCG/5 ML VIAL ONE (10:09)
--- NOTE | 2018-03-05 12:16 | OP ---
DATE OF PROCEDURE: 03/05/2018 SERVICE: Urology. SURGEON: Mino Black M.D. PREOPERATIVE DIAGNOSIS: Right ureteral and renal stones. POSTOPERATIVE DIAGNOSIS: Right ureteral and renal stones. PROCEDURE PERFORMED: Right ureteroscopy, laser lithotripsy, basket extraction of stone, and replacem ent of a 6 x 24 double-J stent. INDICATIONS FOR PROCEDURE: Ms. Maldonado is a 67-year-old white female who presented to the ER over weekend with severe right flank pain. CT demonstrated a 6 mm proximal right renal stone with some additional small nonobstructing right renal calculi. She had been stented emergently due to uncontro lled pain and is now presenting for definitive stone management. Risks and benefits have been discus sed and she has agreed to proceed forward. DESCRIPTION OF PROCEDURE: After identification of armband and verification of consent, the patient w as brought back to the operating room, given a general anesthesia with endotracheal intubation. She was then placed in dorsal lithotomy position and prepped and draped in sterile fashion. After approp riate timeout, a lubricated 22 Kazakh rigid cystoscope was introduced per urethra into the bladder. Attention was turned to the right ureteral orifice from which there was a stent emanating. Flexible graspers were used to grasp the stent and bring it out to the level of the urethral meatus. A 0.035 sensor wire was then advanced through the ureteral stent up to the level of the renal pelvis. The st ent was then removed and discarded leaving the wire in place. A dual-lumen catheter was advanced ove r the sensor wire up to the level of the midureter. An Amplatz Super Stiff wire was then passed thro ugh the second lumen up to the level of the renal pelvis. The dual-lumen was then removed. The sens or wire was secured to the drapes as a safety wire and 13 x 15 x 28 cm ureteral access sheath was adv anced over the Super Stiff wire up to the level of the proximal ureter. Inner cannula and the Super Stiff wire were then removed leaving the outer sheath and the sensor wire in place as a safety wire. A flexible digital ureteroscope was then passed through the ureteral access sheath up to the level o f the proximal ureter where the stone was encountered. The stone was knocked back into the renal pel vis and at that point, a 365-micron laser fiber was used to fragment the stone into smaller pieces. The laser fiber was then removed and a 1.9 Kazakh 0 tip nitinol basket was used to grasp the fragment s of fractured stone and removed them. There were three additional stones found within the kidney. All nonobstructing and attached the renal papillae. These were basketed and removed in their entiret y and all submitted for stone analysis. Upon completion, there were no right-sided renal calculi hazel ntified. Pullback ureteroscopy was employed and there were no additional stone seen within the urete r. Satisfied that all stones were removed and there was nothing within the ureter, the ureteroscope and ureteral access sheath were then removed. The 22-Kazakh rigid cystoscope was then advanced back into the bladder over the sensor wire. A 6 x 24 double-J stent with a string attached was advanced o elo the sensor wire up to the level of the renal pelvis. The wire was then removed leaving a curl in the pelvis and curl in the bladder. The cystoscope was then removed and the string attached to the patient's inner thigh with an Op-Site. The bladder was emptied before cystoscope removal. The patie nt was taken out of lithotomy, awakened and taken to PACU for recovery in stable condition. COMPLICATIONS: None. ESTIMATED BLOOD LOSS: Minimal. RETAINED TUBES AND DRAINS: A 6 x 24 double-J stent on the right. SPECIMENS: Stone for stone analysis. DISPOSITION: The patient will be discharged home and follow up with me in approximately 2-3 weeks fo r a postop check.
[2018-03-05] MEDS ORDERED: Fentanyl 100 MCG/2 ML VIAL ONE (12:36)
[2018-03-05] MEDS ORDERED: Benzocaine 20% Spray 60 ML CAN ONE (14:13)
[2018-03-05] MEDS ORDERED: PROPOFOL 200 MG/20 ML VIAL ONE (14:53)
[2018-03-05] MEDS ORDERED: Dexamethasone 20 MG/5 ML VIAL ONE (14:53)
[2018-03-05] MEDS ORDERED: Glycopyrrolate 0.2 MG/ML 5 ML SYRINGE ONE (14:53)
[2018-03-05] MEDS ORDERED: Lidocaine 1% PF 5 ML VIAL ONE (14:53)
[2018-03-05] MEDS ORDERED: Ondansetron HCl/PF 4 MG/2 ML Vial ONE (14:53)
== END 2018-03-05 14:45 | disposition home or self-care (01) ==
LOC: SDC 07:47
PROVIDERS: ATTEND Urology
PROC: 0T768DZ Dilation of Right Ureter with Intraluminal Device, Via Natural or Artificial Opening Endoscopic (ICD-10-PCS; principal; 2018-03-05)
PROC: 0TC08ZZ Extirpation of Matter from Right Kidney, Via Natural or Artificial Opening Endoscopic (ICD-10-PCS; 2018-03-05)
PROC: 0TC68ZZ Extirpation of Matter from Right Ureter, Via Natural or Artificial Opening Endoscopic (ICD-10-PCS; 2018-03-05)
PROC: 0TP98DZ Removal of Intraluminal Device from Ureter, Via Natural or Artificial Opening Endoscopic (ICD-10-PCS; 2018-03-05)
DX: N20.2 Calculus of kidney with calculus of ureter (principal); I10 Essential (primary) hypertension; G43.909 Migraine, unspecified, not intractable, without status migrainosus; M19.90 Unspecified osteoarthritis, unspecified site; D64.9 Anemia, unspecified; M81.0 Age-related osteoporosis without current pathological fracture; F41.9 Anxiety disorder, unspecified; F17.210 Nicotine dependence, cigarettes, uncomplicated; Z79.899 Other long term (current) drug therapy; Z79.82 Long term (current) use of aspirin; Z87.442 Personal history of urinary calculi
CPT/HCPCS: 52356; 76000; 82365; 88300; 96374; C1769; J0696; J1100; J2001; J2250; J2405; J2704; J3010; J7050

== ENCOUNTER 2018-07-22 12:41 | Outpatient (CLI) | payer MEDICARE, BC | END 2018-07-22 12:42 | disposition home or self-care (01) | LOC: BICMAMMO 12:41 | PROVIDERS: ATTEND Family Medicine | DX: Z12.31 Encounter for screening mammogram for malignant neoplasm of breast (principal); R92.1 Mammographic calcification found on diagnostic imaging of breast | CPT/HCPCS: 77063; 77067 ==

== ENCOUNTER 2019-05-07 10:49 | Day surgery (SDC) | payer MEDICARE, BC ==
[2019-05-06 10:59] VITALS: BMI 42.7
[~2019-05-07 10:49] MED LIST: Lidocaine 1% PF 5 ML VIAL ONE; PROPOFOL 200 MG/20 ML VIAL ONE
[2019-05-07 12:03] LABS: #Basophils 0.1 thou/uL (0.0-0.2); #Eosinphils 0.2 thou/uL (0.0-0.7); #Lymphocytes 2.5 thou/uL (1.20-3.40); #Monocytes 0.6 thou/uL (0.11-0.59); #Neutrophils 6.7 thou/uL (1.40-6.50); %Basophils 0.7 % (0.0-1.0); %Eosinophils 1.6 % (0.0-10.0); %Lymphocytes 25.2 % (21.0-51.0); %Monocytes 5.8 % (0.0-10.0); %Neutrophils 66.7 % (42.0-75.0); Hemoglobin 13.9 g/dL (12.0-16.0); Mean Corpuscular HGB CONC 32.9 g/dL (32.0-36.0); Mean Corpuscular Hemoglobin 30.1 pg (27.0-31.0); Mean Corpuscular Volume 91.3 fL (78.0-98.0); Mean Platelet Volume 7.7 fL (7.4-10.4); Platelet Count 223 thou/uL (130-400); RBC Distribution Width 13.3 % (11.5-14.5); Red Blood Cell (RBC) Count 4.62 mill/uL (4.20-5.40); White Blood Cell (WBC) Count 10.1 thou/uL (4.8-10.8)
[2019-05-07] MEDS ORDERED: Fentanyl 100 MCG/2 ML VIAL ONE (12:16)
[2019-05-07] MEDS ORDERED: Lidocaine 1% (PF) 30 ML VIAL ONE (12:48)
[2019-05-07] MEDS ORDERED: Midazolam HCl 2 mg/2 ml Vial ONE (13:13)
--- NOTE | 2019-05-07 20:16 | OP ---
DATE OF PROCEDURE: 05/07/2019 PREOPERATIVE DIAGNOSIS: Left carpal tunnel syndrome. POSTOPERATIVE DIAGNOSIS: Left carpal tunnel syndrome. PROCEDURES PERFORMED: 1. Left open carpal tunnel release. 2. Placement of short-arm volar splint, left upper extremity. [employer]ATION HELPER: None. BLOOD LOSS: Minimal. COMPLICATIONS: None. ANESTHESIA: She had TIVA with local. DISPOSITION: She did go back to Day Stay in stable condition. INDICATIONS: A 68-year-old female, who has multiple medical issues, but who developed severe numbness, tingling, and pain in her left upper extremity over the last 3 to 4 weeks. EMG/NCV confirmed carpal tunnel syndrome. At this time, she opted to have this released. DESCRIPTION OF PROCEDURE: After all appropriate consent forms were explained and signed, the patient was taken back to the operating room and at this time was given IV sedation. A well-padded tourniquet was placed on the left arm and the arm was then prepped and draped in the standard surgical fashion. The incision was then drawn out and infiltrated with plain lidocaine. Limb was exsanguinated and tourniquet taken up to 250 mmHg. At this time, using Loupe magnification, a 15 blade was used to incise down through skin. Bipolar cautery was used to coagulate any brisk venous bleeding. We then placed a small hemostat to protect the underlying median nerve and transected the transverse carpal ligament using multiple 15 blades as well as scissors. Once this was done, a small finger was inserted to palpate for any remaining bands. At this time, a moist Ray-Nicole sponge was placed into the wound. Tourniquet was let down and pressure was held. Bipolar cautery used to coagulate any brisk venous bleeding. The wound was then irrigated with saline solution and we then evaluated the nerve. The nerve was found to be significantly injected, the nerve was intact, there were no masses noted, and the underlying flexor tendons were in good condition. At this time, we irrigated and dried the wound. We then placed multiple nylon stitches to close the incision. A bulky sterile hand dressing and a small volar splint were then placed. The patient was then awakened and taken to recovery in stable condition. All counts were correct at the end of the case. The patient received preoperative IV antibiotics. Job ID: [id number]
== END 2019-05-07 14:55 | disposition home or self-care (01) ==
LOC: SDC 10:49
PROVIDERS: ATTEND Orthopaedic Surgery
PROC: 01N50ZZ Release Median Nerve, Open Approach (ICD-10-PCS; principal; 2019-05-07)
DX: G56.02 Carpal tunnel syndrome, left upper limb (principal); M17.12 Unilateral primary osteoarthritis, left knee; I10 Essential (primary) hypertension; G43.909 Migraine, unspecified, not intractable, without status migrainosus; E78.00 Pure hypercholesterolemia, unspecified; M81.0 Age-related osteoporosis without current pathological fracture; G47.30 Sleep apnea, unspecified; F17.210 Nicotine dependence, cigarettes, uncomplicated; Z79.82 Long term (current) use of aspirin; Z79.899 Other long term (current) drug therapy
CPT/HCPCS: 85025; J0690; J2001; J2250; J2704; J3010

== ENCOUNTER 2019-07-09 07:01 | Day surgery (SDC) | payer MEDICARE, BC ==
[2019-07-08 12:15] VITALS: BMI 42.7
[2019-07-09] MEDS ORDERED: Lorazepam 1 MG TAB ONE (07:41)
[2019-07-09 08:09] VITALS: BP 142/74; TEMP 99
--- NOTE | 2019-07-09 10:48 | CT ---
CT LUMBAR MYELOGRAM: INDICATIONS: 68-year-old female with low back pain and lumbar radiculopathy COMPARISON: Lumbar MRI dated December 29, 2017 and lumbar spinal radiograph dated May 27, 2018 TECHNIQUE: Multiple CT images were obtained of the lumbar spine following the intrathecal administration of an O mnipaque 300 Msolution. Please see the lumbar myelogram for details concerning the injection technique. Axial, coronal, and sagittal reformatted images were constructed from the raw data. FINDINGS: Visualized retroperitoneal and paravertebral soft tissues: There is bilateral nephrolithiasis. There are mild vascular calcifications involving abdominal aorta. There are scattered diverticula involving the visualized colon. Spinal alignment: Spinal alignment is within normal limits. Spinal instrumentation or postsurgical change: There is postsurgical change consistent with posterior lateral interbody fusion of L2-S1. There is solid osseous incorporation of interbody bone graft posterolaterally and within the interbody spaces of L4-S1. No appreciable bridging bone is seen trave rsing the fusion sites at L2-3 or L3-4. There are fractured pedicle screws at S1. There are bilateral pedicle screws at L2-L4 with interconnecting radiolucent cables. There is visualization of SI joint arthrodesis screws on the left. 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 At L5-S1, there is mild right and moderate left osseous neural foraminal narrowing due to surrounding bridging bone near the intervertebral disc spaces and facet complexes.. At L4-5, there is no appreciable central canal or neuroforaminal narrowing. At L3-4, there is vacuum disc phenomenon within the L3-L4 intervertebral disc space. There is advance d facet joint degenerative change. There is residual broad-based bulge inducing moderate right neural foraminal narrowing. This appears similar to the comparison MR. At L2-3, there is no appreciable central canal or neuroforaminal narrowing. At L1-L2, there is no appreciable central canal or neuroforaminal narrowing. At T12-L1, there is no appreciable central canal or neuroforaminal narrowing. IMPRESSION: 1. Postoperative lumbar spine as above. 2. Predominantly stable multilevel spondylosis of the lumbar spine with neural foraminal narrowing at L5-S1 and L3-4. 3. Bilateral nephrolithiasis and colonic diverticulosis
--- NOTE | 2019-07-09 11:20 | RAD ---
LUMBAR MYELOGRAM WITH FLUOROSCOPIC GUIDANCE: HISTORY: Lumbar radiculopathy. Low back pain. EXPOSURE: One minute. 1031.4 mcg/sq m. FINDINGS: TWO VIEWS LUMBAR SPINE: Five lumbar type vertebrae. There are bilateral transpedicular screws at L2, L3, L4 and S1. Additiona lly there is fusion hardware in the disc prosthesis at L4-L5 and L5-S1. Hypertrophic bone graft material in the posterior elements from L4 through S1. Successful lumbar puncture for intrathecal contrast administration. Total of 9 cc of Isovue-M 200 con trast was administered intrathecally at the L2-L3 disc space. TECHNIQUE: Consent obtained to perform a lumbar puncture for intrathecal contrast administration. The patient's back was evaluated. The L2-L3 level was deemed appropriate. The skin was prepped and draped in sterile fashion. 1% lidocaine, buffered with sodium bicarbonate was used for local anesthesia. Under fluoroscopic guidance, a 22-gauge spinal needle was advanced into the CSF space. There is prompt flow of CSF to the hub of the needle. Via a short tubing catheter, a total of 9 cc of Isovue-M 200 co ntrast was administered intrathecally. The patient tolerated the procedure well. No immediate or postprocedural complications. IMPRESSION: Successful lumbar puncture for lumbar myelogram. Transcribed Date/Time: 07/09/2019 11:45 AM
[2019-07-09] MEDS ORDERED: Iopamidol-M 200 41% 20 ML VIAL ONE (12:00)
== END 2019-07-09 09:50 | disposition home or self-care (01) ==
LOC: RAD 07:01
PROVIDERS: ATTEND Neurological Surgery
PROC: B01B1ZZ Fluoroscopy of Spinal Cord using Low Osmolar Contrast (ICD-10-PCS; principal; 2019-07-09)
DX: M47.26 Other spondylosis with radiculopathy, lumbar region (principal); K57.30 Diverticulosis of large intestine without perforation or abscess without bleeding; N20.0 Calculus of kidney; F41.9 Anxiety disorder, unspecified; G43.909 Migraine, unspecified, not intractable, without status migrainosus; G89.29 Other chronic pain; G47.30 Sleep apnea, unspecified; M17.9 Osteoarthritis of knee, unspecified; Z87.891 Personal history of nicotine dependence; Z79.82 Long term (current) use of aspirin; Z79.899 Other long term (current) drug therapy; Z98.1 Arthrodesis status; Z99.89 Dependence on other enabling machines and devices
CPT/HCPCS: 62304; 72132; Q9966

== ENCOUNTER 2019-07-29 13:22 | Outpatient (CLI) | payer MEDICARE, BC ==
--- NOTE | 2019-07-29 13:53 | MMO ---
Bilateral MAMMO Bilat Screen DDI+ANAT. CLINICAL HISTORY: Patient is 68 years old and is seen for screening. The patient has no family history of breast cancer. The patient has no personal history of cancer. The patient has a history of bilateral Breast reduction in 1993. VIEWS: The views performed were: bilateral craniocaudal with tomosynthesis and bilateral mediolateral oblique with tomosynthesis. FILMS COMPARED: The present examination has been compared to prior imaging studies performed at [facility] on 06/27/2014, 06/25/2016, 07/02/2017 and 07/22/2018. This study has been interpreted with the assistance of computer-aided detection. MAMMOGRAM FINDINGS: There are scattered fibroglandular densities. There are stable benign appearing calcifications seen in both breasts. There are no suspicious masses, suspicious calcifications, or new areas of architectural distortion. IMPRESSION: THERE IS NO MAMMOGRAPHIC EVIDENCE OF MALIGNANCY. A ROUTINE FOLLOW-UP MAMMOGRAM IN 1 YEAR IS RECOMMENDED. THE RESULTS OF THIS EXAM WERE SENT TO THE PATIENT. ACR BI-RADS Category 2 - Benign finding MAMMOGRAPHY NOTE: 1. A negative mammogram report should not delay a biopsy if a dominant of clinically suspicious mass is present. 2. Approximately 10% to 15% of breast cancers are not detected by mammography. 3. Adenosis and dense breasts may obscure an underlying neoplasm. Reported by: JOY SALDIVAR MD Electonically Signed: [id number]
== END 2019-07-29 13:23 | disposition home or self-care (01) ==
LOC: BICMAMMO 13:22
PROVIDERS: ATTEND Family Medicine
DX: Z12.31 Encounter for screening mammogram for malignant neoplasm of breast (principal)
CPT/HCPCS: 77063; 77067

== ENCOUNTER 2019-11-09 15:04 | Outpatient (CLI) | payer MEDICARE, BC ==
--- NOTE | 2019-11-09 16:43 | MRI ---
THORACIC SPINE MRI WITHOUT CONTRAST: 11/09/19 COMPARISON: None. HISTORY: Post laminectomy syndrome, stenosis. TECHNIQUE: Multiplanar and multisequence MR imaging of the thoracic spine without contrast. FINDINGS: The sagittal STIR imaging demonstrates no focal area of osseous marrow edema. There is a moderate degree of thoracic spine kyphosis centered within the upper and mid thoracic spin e secondary to mild anterior wedging of numerous contiguous thoracic vertebral bodies, including the T5, T6, T7 and T8 vertebral bodies. There is no evidence for an acute fracture within the thoracic sp ine. There is no anterolisthesis or retrolisthesis noted within the thoracic spine. There is no abnor mal signal intensity noted within the thoracic cord. There is no significant central canal stenosis w ithin the thoracic spine at any level. There is no significant neural foraminal stenosis on either side at any level within the thoracic spi ne. Multilevel disc space narrowing and vacuum disc formation is noted throughout the thoracic spine. IMPRESSION: Chronic findings as detailed above. No acute findings are seen within the thoracic spine. No evidence for acute fracture. POS: HECTOR
== END 2019-11-09 15:05 | disposition home or self-care (01) ==
LOC: TBSIIMAG 15:04
PROVIDERS: ATTEND Anesthesiology Pain Medicine
DX: M96.1 Postlaminectomy syndrome, not elsewhere classified (principal); M48.04 Spinal stenosis, thoracic region; M51.34 Other intervertebral disc degeneration, thoracic region; M40.204 Unspecified kyphosis, thoracic region; M48.54XA Collapsed vertebra, not elsewhere classified, thoracic region, initial encounter for fracture
CPT/HCPCS: 72146

== ENCOUNTER 2020-05-04 08:18 | Day surgery (SDC) | payer MEDICARE, BC ==
[2020-05-03 14:44] VITALS: BMI 38.5
[2020-05-04 08:51] LABS: INR-International Normal Ratio 1.2; Prothrombin Time 15.6 sec (12.0-14.7)
[2020-05-04 08:52] LABS: PTT 40.8 sec (22.9-36.1)
--- NOTE | 2020-05-04 10:58 | CT ---
Exam: CT guided biopsy of a right hemipelvic mass. HISTORY: Right hemipelvic mass. Weight loss. COMPARISON: Chest abdomen and pelvic CT 04/26/2020 FINDINGS: Successful CT-guided biopsy. Total of 3 18-gauge Franseen fine-needle aspirations were perf ormed. Lesional tissue is present. No immediate or postprocedure complications TECHNIQUE: Consent obtained reformatory CT-guided biopsy of a right hemipelvic mass. Skin was prepped and draped in a sterile fashion. 1% lidocaine, buffered with sodium bicarbonate was used for local anesthesia. Under CT guidance, a 17-gauge metallic trocar was advanced into the lesion. Through this trocar, 3 18-gauge Franseen fine-needle aspirations were performed. Lesional tissue is present. No immediate or postprocedure complications IMPRESSION: 1. Successful CT-guided biopsy of a right hemipelvic mass. 2. Lesional tissue is present. Final pathologic diagnosis us pending.
[2020-05-04 11:09] VITALS: BP 97/53; TEMP 98.7
--- NOTE | 2020-05-04 11:21 | ULT ---
Exam: Ultrasound guided fine-needle aspiration of right thyroid lobe mass HISTORY: Right lower lobe mass COMPARISON: 05/01/2020 FINDINGS: Successful fine-needle aspiration of a solid mass in the right lower lobe. Mass measures 2.1 x 2.8 x 2.2 cm. Total of 4, 25-gauge fine-needle aspirations were performed. No immediate or post procedure complication TECHNIQUE: Consent obtained to perform a fine-needle aspiration of a solid mass in the right thyroid lobe. Right neck was prepped and draped in a sterile fashion. 1% lidocaine, buffered with sodium bicarbonate was used for local anesthesia. Under ultrasound guidance, 4, 25-gauge fine-needle aspirat ions were performed. No immediate or postprocedural complications IMPRESSION: Successful fine-needle aspiration. Final pathologic diagnosis is pending.
--- NOTE | 2020-05-05 09:52 | CT ---
Exam: CT guided biopsy of a right hemipelvic mass. HISTORY: Right hemipelvic mass. Weight loss. COMPARISON: Chest abdomen and pelvic CT 04/26/2020 FINDINGS: Successful CT-guided biopsy. Total of 3 18-gauge Franseen fine-needle aspirations were perf ormed. Lesional tissue is present. No immediate or postprocedure complications TECHNIQUE: Consent obtained reformatory CT-guided biopsy of a right hemipelvic mass. Skin was prepped and draped in a sterile fashion. 1% lidocaine, buffered with sodium bicarbonate was used for local anesthesia. Under CT guidance, a 17-gauge metallic trocar was advanced into the lesion. Through this trocar, 3 18-gauge Franseen fine-needle aspirations were performed. Lesional tissue is present. No immediate or postprocedure complications IMPRESSION: 1. Successful CT-guided biopsy of a right hemipelvic mass. 2. Lesional tissue is present. Final pathologic diagnosis us pending. Transcribed Date/Time: 05/05/2020 9:52 AM
== END 2020-05-04 11:50 | disposition home or self-care (01) ==
LOC: CT 08:18
PROVIDERS: ATTEND Internal Medicine Gastroenterology
PROC: 0WBH3ZX Excision of Retroperitoneum, Percutaneous Approach, Diagnostic (ICD-10-PCS; principal; 2020-05-04)
PROC: 0GBH3ZX Excision of Right Thyroid Gland Lobe, Percutaneous Approach, Diagnostic (ICD-10-PCS; 2020-05-04)
DX: E04.1 Nontoxic single thyroid nodule (principal); C76.3 Malignant neoplasm of pelvis; I10 Essential (primary) hypertension; F17.200 Nicotine dependence, unspecified, uncomplicated; D64.9 Anemia, unspecified; G47.30 Sleep apnea, unspecified; M81.0 Age-related osteoporosis without current pathological fracture; Z79.82 Long term (current) use of aspirin; Z79.84 Long term (current) use of oral hypoglycemic drugs; Z79.899 Other long term (current) drug therapy; Z88.8 Allergy status to other drugs, medicaments and biological substances
CPT/HCPCS: 49180; 60100; 76942; 77002; 85610; 85730; 88173; 88305; 88333

== ENCOUNTER 2020-06-05 09:27 | Outpatient (CLI) | payer MEDICARE, BC, OTHER ==
--- NOTE | 2020-06-05 14:38 | RAD ---
EXAM: Single view of the chest HISTORY: Preoperative testing COMPARISON: None FINDINGS: Single view of the chest shows a normal sized cardiomediastinal silhouette. There is no homero dence of consolidation, mass, or pleural effusion. Postsurgical changes are seen in the lumbar spine. Degenerative changes are seen in the spine. IMPRESSION: No evidence of acute cardiopulmonary disease
[2020-06-05 16:40] LABS: #Eosinphils 0.2 thou/uL (0.0-0.7); #Lymphocytes 2.3 thou/uL (1.20-3.40); #Monocytes 1.1 thou/uL (0.11-0.59); #Neutrophils 8.2 thou/uL (1.40-6.50); %Basophils 0.2 % (0.0-1.0); %Eosinophils 1.5 % (0.0-10.0); %Lymphocytes 19.1 % (21.0-51.0); %Monocytes 9.7 % (0.0-10.0); %Neutrophils 69.6 % (42.0-75.0); Hemoglobin 8.4 g/dL (12.0-16.0); Mean Corpuscular HGB CONC 28.6 g/dL (32.0-36.0); Mean Corpuscular Hemoglobin 24.4 pg (27.0-31.0); Mean Corpuscular Volume 85.3 fL (78.0-98.0); Mean Platelet Volume 6.5 fL (7.4-10.4); Platelet Count 568 thou/uL (130-400); RBC Distribution Width 16.2 % (11.5-14.5); Red Blood Cell (RBC) Count 3.44 mill/uL (4.20-5.40); White Blood Cell (WBC) Count 11.8 thou/uL (4.8-10.8)
[2020-06-06 15:00] LABS: SARS-CoV-2 MS2 Positive; SARS-CoV-2 N Gene Negative; SARS-CoV-2 S Gene Negative; SARS-CoV-2 by NAA Not Detected (NotDetected); SARS-CoV-2 orf1ab Negative
--- NOTE | 2020-06-06 16:20 | EKG ---
Test Reason : PREOP Blood Pressure : / mmHG Vent. Rate : 092 BPM Atrial Rate : 092 BPM P-R Int : 148 ms QRS Dur : 080 ms QT Int : 372 ms P-R-T Axes : 049 030 046 degrees QTc Int : 460 ms Sinus rhythm with Premature supraventricular complexes Low voltage QRS Cannot rule out Anterior infarct , age undetermined Abnormal ECG No previous ECGs available Confirmed by SAVANNAH WOOD ([id number]) on 06/06/2020 4:20:11 PM Referred By: Jian UP Confirmed By:SAVANNAH WOOD
== END 2020-06-05 09:28 | disposition home or self-care (01) ==
LOC: LABBT 09:27
PROVIDERS: ATTEND Specialist
DX: Z01.818 Encounter for other preprocedural examination (principal); Z20.828 Contact with and (suspected) exposure to other viral communicable diseases; C49.9 Malignant neoplasm of connective and soft tissue, unspecified
CPT/HCPCS: 71045; 85025; U0003; 36415; 80053; 82248; 83615; 84100; 84550; 87635; 93005; 93010

== ENCOUNTER 2020-06-08 09:22 | Day surgery (SDC) | payer MEDICARE, BC ==
[2020-06-06 14:37] VITALS: BMI 36.7
[2020-06-08] MEDS ORDERED: Acetaminophen 500 MG TAB ONE (09:40)
[2020-06-08] MEDS ORDERED: Ketorolac Tromethamine 30 MG/ML VIAL ONE (09:40)
[2020-06-08] MEDS ORDERED: PHENYLEPHRINE-NS 100 MCG/ML 10 ML SYRINGE ONE (09:56)
[2020-06-08] MEDS ORDERED: PROPOFOL 200 MG/20 ML VIAL ONE (09:56)
[2020-06-08] MEDS ORDERED: Lidocaine 1% w/Epinephrine 1:100K 20 ML VIAL ONE (10:21)
[2020-06-08] MEDS ORDERED: Bupivacaine 0.25% HCL 30 ML VIAL ONE (10:21)
[2020-06-08] MEDS ORDERED: Bupivacaine/Epinephrine 0.25% 30 ML VIAL ONE (10:26)
[2020-06-08] MEDS ORDERED: Lidocaine 1% (PF) 30 ML VIAL ONE (10:27)
[2020-06-08] MEDS ORDERED: Fentanyl 100 MCG/2 ML VIAL ONE (10:57)
[2020-06-08] MEDS ORDERED: Lidocaine 2% Jelly 5 ML TUBE ONE (10:57)
[2020-06-08] MEDS ORDERED: Propofol 500 MG/50 ML VIAL ONE (11:01)
--- NOTE | 2020-06-08 15:01 | RAD ---
PORTABLE CHEST: Date: 06/08/2020 HISTORY: Follow-up MediPort placement. COMPARISON: 06/05/2020. FINDINGS: MediPort type catheter has been placed on the right. The line overlies the SVC. No pneumothorax or in filtrate seen. Heart and mediastinum unremarkable and stable. IMPRESSION: No acute findings. POS: AGW
--- NOTE | 2020-06-09 13:41 | OP ---
DATE OF PROCEDURE: 06/08/2020 PREOPERATIVE DIAGNOSIS: Pelvic malignancy. POSTOPERATIVE DIAGNOSIS: Pelvic malignancy. PROCEDURE PERFORMED: Placement of a standard-size power compatible right subclavian MediPort. ANESTHESIA: Total intravenous anesthesia with local using a mixture of 0.25% Marcaine with epinephrine and 1% lidocaine. INDICATIONS: The patient is a 69-year-old white female. She is recently diagnosed with a pelvic malignancy for which chemotherapy has been recommended. MediPort placement is requested for chemotherapy administration. DESCRIPTION OF OPERATION: Informed consent was obtained. The patient was taken to the operating room where total intravenous anesthesia was obtained with the patient in supine position. Right periclavicular area was prepped with ChloraPrep and draped in sterile fashion. Local anesthetic was infiltrated and a large-gauge needle was passed under the clavicle in the subclavian vein. Guidewire was passed through the needle and fluoroscopically confirmed to enter the superior vena cava. Additional local anesthetic was infiltrated and transverse incision was created based on needle insertion site. A subcutaneous pocket was dissected inferiorly. Introducer dilator was passed over the guidewire under fluoroscopic guidance. The guidewire and dilator were removed, and the catheter was passed through the introducer. The tip of the catheter was positioned at the atriocaval junction and the catheter was trimmed to the appropriate length and secured to the locking hub of the MediPort. The port was then placed in the subcutaneous pocket where it was secured to the pectoral fascia with 2 interrupted sutures of 3-0 Prolene. The incision was then closed in layers with 3-0 and 4-0 Monocryl. Additional local anesthetic was infiltrated. The port was cannulated with a Lei needle and it aspirated blood freely and was flushed with heparinized saline. Dermabond was placed externally on the skin incision. There were no complications. Blood loss was negligible. The patient tolerated the procedure well and was taken to recovery room in stable condition. FINDINGS: I chose a standard-size port secondary to the patient's body habitus. This was placed uneventfully into the right subclavian vein. Fluoroscopy was used during the procedure. There were no complications and blood loss was essentially none. She tolerated the procedure well and was taken to recovery room in stable condition. Job ID: [id number]
== END 2020-06-08 13:21 | disposition home or self-care (01) ==
LOC: SDC 09:22
PROVIDERS: ATTEND Specialist
PROC: 0JH60WZ Insertion of Totally Implantable Vascular Access Device into Chest Subcutaneous Tissue and Fascia, Open Approach (ICD-10-PCS; principal; 2020-06-08)
PROC: 02HV33Z Insertion of Infusion Device into Superior Vena Cava, Percutaneous Approach (ICD-10-PCS; 2020-06-08)
PROC: B518ZZA Fluoroscopy of Superior Vena Cava, Guidance (ICD-10-PCS; 2020-06-08)
DX: C49.5 Malignant neoplasm of connective and soft tissue of pelvis (principal); I10 Essential (primary) hypertension; G43.909 Migraine, unspecified, not intractable, without status migrainosus; M19.90 Unspecified osteoarthritis, unspecified site; F41.9 Anxiety disorder, unspecified; G47.30 Sleep apnea, unspecified; M81.0 Age-related osteoporosis without current pathological fracture; Z87.891 Personal history of nicotine dependence; Z79.82 Long term (current) use of aspirin; Z79.899 Other long term (current) drug therapy; Z98.1 Arthrodesis status
CPT/HCPCS: 36561; 71045; C1788; J0690; J1642; J1885; J2001; J2704; J3010; S0020

== ENCOUNTER 2020-06-19 16:12 | Inpatient (IN) | payer MEDICARE, BC, OTHER ==
[2020-06-19] MEDS ORDERED: Ondansetron PF 4 MG/2 ML Vial IVP PRN (17:58)
[2020-06-19] MEDS ORDERED: HYDROcodone/Acetaminophen 5/325 mg Tablet PO PRN (17:58)
[2020-06-19] MEDS ORDERED: Ondansetron ODT 4 MG TAB PO PRN (17:58)
[2020-06-19] MEDS ORDERED: Sodium Chloride 0.9% 1,000 ML IV SCH (18:00)
[2020-06-19] MEDS ORDERED: diphenhydrAMINE 25 MG CAP PO SCH (18:00)
[2020-06-19] MEDS ORDERED: Acetaminophen 500 MG TAB PO SCH (18:00)
[2020-06-19 18:39] VITALS: BMI 39.1
[2020-06-19 18:40] LABS: ALT (SGPT) 7 U/L (8-55); AST (SGOT) 13 U/L (5-34); Albumin 2.7 g/dL (3.4-4.8); Alkaline Phosphatase 136 U/L (40-110); Anion Gap 13 mmol/L (10-20); BUN (Urea Nitrogen) 10 mg/dL (9.8-20.1); Bilirubin, Total 0.7 mg/dL (0.2-1.2); Calc. Creatinine Clearance 113 mL/min (70-130); Calcium 8.4 mg/dL (7.8-10.44); Carbon Dioxide 25 mmol/L (23-31); Chloride 102 mmol/L (98-107); Estimated GFR-MDRD 82; Globulin 3.3 g/dL (2.4-3.5); Glucose 149 mg/dL (83-110); Potassium 3.9 mmol/L (3.5-5.1); Sodium 136 mmol/L (136-145)
--- NOTE | 2020-06-19 18:51 | RAD ---
PORTABLE CHEST: History: Shortness of breath Comparison: 06-08-2020 FINDINGS: Heart size appears slightly enlarged. Right sided Mediport catheter is present. Lungs are clear of in filtrates. No signs of failure. IMPRESSION: Borderline to minimal cardiomegaly. POS: OFF
[2020-06-19] MEDS: Gabapentin 300 MG CAP PO SCH (20:17)
[2020-06-19] MEDS: Famotidine 20 MG TAB PO SCH (20:17)
[2020-06-19] MEDS: Atorvastatin Calcium 10 MG TAB PO SCH (20:20)
[2020-06-19] MEDS: Sodium Chloride 0.9% 1,000 ML IV SCH (20:20)
[2020-06-19] MEDS ORDERED: Vancomycin 1.5 GRAM/300 ML BAG 1.5 GM in Premix Bag 1 BAG IVPB SCH (21:00)
--- NOTE | 2020-06-19 22:25 | HP ---
CHIEF COMPLAINT: Abdominal pain. HISTORY OF PRESENT ILLNESS: This patient is a 69-year-old female who was experiencing some abdominopelvic pain and nausea. She lost about 57 pounds over 3 months. She was seen by GI, where her initial exam revealed a mass in the pelvic area. She had a CT scan revealing a mass. She subsequently underwent a biopsy, which confirmed a high-grade sarcoma. The patient was subsequently established at [facility]. However, she follows with Dr. García locally and had Adriamycin started a week ago. She subsequently did fine until 2 days ago when she started experiencing pain again in her pelvic area. She thought it was simply related to the cancer. Therefore, she did not immediately seek treatment, although she reported temperature up to 103. She waited until today when the cancer clinic was open and she presented there. She indicates that she did have a urinalysis there that was "red as a fire truck." Labs there revealed a white count of 1.4, hemoglobin 6.9, platelets 212. ANC was 0.2. I felt that she likely had a recurrence of urinary tract infection, which she had about 3 weeks ago and was treated by her primary care provider with 10 days of antibiotics. She denies any urinary symptoms including dysuria or frequency at this time. She denies any flank pain. Of note, the patient does have a history of ureterolithiasis as well. The Cancer Clinic notes indicate the patient did receive a dose of Udenyca last cycle so the anticipation is that her white count would improve relatively soon. The patient received a dose of vancomycin and cefepime at the cancer clinic and was referred to this facility for further treatment for neutropenic fever. Urinalysis and urine cultures were obtained there. REVIEW OF SYSTEMS: The patient reports that she is continuing to have the pain. She has also had some history of constipation, but has been taking some stool softeners and that has improved significantly. Otherwise, her appetite has come back and she is capable now of eating about half of what she would consider a full meal, which is much better than what she was doing previously. All other systems reviewed. All pertinent positives and negatives noted in the history of present illness. PAST MEDICAL HISTORY: The above-mentioned sarcoma, ureterolithiasis, diverticulosis without diverticulitis, hypertension, depression, hyperlipidemia. SURGICAL HISTORY: Back surgery x6, cholecystectomy, hysterectomy. FAMILY HISTORY: Mother of an MA. Father is alive at 92 and has hypertension. SOCIAL HISTORY: The patient is a former smoker, quit two months ago. She denies alcohol or drugs. She is . She is full code, and her would be her surrogate decision maker should that be necessary. CURRENT MEDICATIONS: 1. Compazine 10 mg q.6h p.r.n. 2. Duloxetine 60 mg p.o. daily. 3. Folic acid 1 mg daily. 4. Gabapentin 300 mg p.o. daily. 5. Hydrocodone/acetaminophen p.r.n. 6. Lovastatin 20 mg daily. 7. Zofran ODT p.r.n. 8. Oxycodone 5 mg p.r.n. ALLERGIES: NONE. PHYSICAL EXAMINATION: VITAL SIGNS: Temperature is 97.9, pulse 96, respirations 18, O2 saturation 96% on room air, BP 114/61. GENERAL: She is awake, alert, oriented, pleasant, cooperative, a bit hearing-impaired. HEENT: PABLO. No OP lesions. NECK: Supple and symmetric. HEART: Regular rate and rhythm without murmurs, gallops, or rubs. LUNGS: Clear to auscultation bilaterally with good chest wall expansion, air exchange. ABDOMEN: Soft, nondistended with positive bowel sounds. She does have a palpable mass in the right lower abdomen and pelvis, which is somewhat tender to palpation. EXTREMITIES: No cyanosis, clubbing, or edema. There is trace to 1+ bilateral lower extremity edema which the patient indicates is new to her. PSYCH: Normal affect and behavior. NEURO: No focal deficits. She has normal cognition, normal cranial nerves and spontaneous moves all extremities. LABORATORY DATA: As noted above. IMPRESSION AND PLAN: 1. Neutropenic fever in patient with aggressive sarcoma and ANC of 0.2. The patient has received vancomycin and cefepime. She will continue on those while we await blood and urine cultures. We will obtain a chest x-ray. 2. Sarcoma. Oncology following. The patient has received the 1st course of Adriamycin. We will cover her with some oral and intravenous pain medications and continue with the gabapentin as well. 3. History of depression. Continue duloxetine. 4. History of hyperlipidemia. Continue with the lovastatin. Job ID: [id number]
[2020-06-19] MEDS: Morphine 2 MG/ML VIAL SLOW IVP PRN (22:27)
[2020-06-19] MEDS: Cefepime 2 GM in Sodium Chloride 0.9% 100 ML IVPB SCH (22:50)
[2020-06-20] MEDS: Sodium Chloride 0.9% 1,000 ML IV SCH (02:47)
[2020-06-20] MEDS: Cefepime 2 GM in Sodium Chloride 0.9% 100 ML IVPB SCH ×3 (02:48→18:15)
[2020-06-20] MEDS: HYDROcodone/Acetaminophen 5/325 mg Tablet PO PRN ×2 (02:54→09:27)
[2020-06-20] MEDS: Vancomycin 1.5 GRAM/300 ML BAG 1.5 GM in Premix Bag 1 BAG IVPB SCH (03:30)
[2020-06-20] MEDS: Morphine 2 MG/ML VIAL SLOW IVP PRN ×3 (06:05→20:14)
[2020-06-20 06:51] LABS: Band 6 % (5-11); Eosinophils 2 % (0-10); Lymphocytes 79 % (21-51); MDiff Complete? YES; Mean Corpuscular HGB CONC 30.4 g/dL (32.0-36.0); Mean Corpuscular Hemoglobin 25.9 pg (27.0-31.0); Mean Platelet Volume 8.1 fL (7.4-10.4); Monocytes 4 % (0-10); Neutrophil 7 % (42-75); Platelet Count 130 thou/uL (130-400); Reactive Lymphocytes 2 % (0-10); White Blood Cell (WBC) Count 1.3 thou/uL (4.8-10.8)
[2020-06-20 07:06] LABS: ALT (SGPT) 10 U/L (8-55); AST (SGOT) 16 U/L (5-34); Albumin 2.2 g/dL (3.4-4.8); Alkaline Phosphatase 130 U/L (40-110); Anion Gap 10 mmol/L (10-20); BUN (Urea Nitrogen) 10 mg/dL (9.8-20.1); Bilirubin, Total 1.4 mg/dL (0.2-1.2); Calc. Creatinine Clearance 132 mL/min (70-130); Carbon Dioxide 28 mmol/L (23-31); Chloride 102 mmol/L (98-107); Estimated GFR-MDRD Greater than 90; Globulin 2.8 g/dL (2.4-3.5); Glucose 159 mg/dL (83-110); Potassium 3.9 mmol/L (3.5-5.1); Sodium 136 mmol/L (136-145)
[2020-06-20] MEDS ORDERED: FLU VACC QS2020-21(6MOS UP)/PF 60 MCG/0.5 ML SYRINGE IM ONE (09:00)
[2020-06-20] MEDS: Famotidine 20 MG TAB PO SCH ×2 (09:19→20:12)
[2020-06-20] MEDS: DULoxetine 60 MG CAP PO SCH (09:19)
[2020-06-20 12:05] LABS: SARS-CoV-2 MS2 Positive; SARS-CoV-2 N Gene Negative; SARS-CoV-2 S Gene Negative; SARS-CoV-2 by NAA Not Detected (NotDetected); SARS-CoV-2 orf1ab Negative
[2020-06-20] MEDS ORDERED: HYDROcodone/Acetaminophen 10/325 mg Tablet PO PRN ×3 (12:20→12:24)
[2020-06-20] MEDS ORDERED: Morphine 2 MG/ML VIAL SLOW IVP PRN (12:20)
[2020-06-20] MEDS: HYDROcodone/Acetaminophen 10/325 mg Tablet PO PRN ×3 (13:31→23:18)
--- NOTE | 2020-06-20 15:14 | PDOC.HOSPP ---
- Subjective Encounter Date: 06/20/20 Subjective: Says she feels fine other than the fact that she is having the pain associated with her lower abdomen. Otherwise, she actually says she feels great. - Objective Vital Signs & Weight: Vital Signs (12 hours) Temp Pulse Resp BP Pulse Ox 06/20/20 11:44 99.9 F H 106 H 18 131/63 95 06/20/20 07:54 99.0 F 101 H 18 119/60 97 Weight Admit Weight 214 lb Weight 214 lb I&O: 06/19/20 06/20/20 06/21/20 06:59 06:59 06:59 Intake Total 2890 Balance 2890 Result Diagrams: 06/20/20 06:00 06/20/20 06:00 Hospitalist ROS - Medication Medications: Active Medications Generic Name Dose Route Start Last Admin Trade Name Freq PRN Reason Stop Dose Admin Hydrocodone Bitart/Acetaminophen 2 tab 06/20/20 12:24 06/20/20 13:31 Hydrocodone/Acetaminophen 10/325 Mg Tablet PO 2 tab Q4H PRN Administration Moderate to Severe Pain (6-10) Atorvastatin Calcium 10 mg 06/19/20 21:00 06/19/20 20:20 Atorvastatin Calcium 10 Mg Tab PO 10 mg HS KANDACE Administration Duloxetine HCl 60 mg 06/20/20 09:00 06/20/20 09:19 Duloxetine 60 Mg Cap PO 60 mg DAILY KANDACE Administration Famotidine 20 mg 06/19/20 21:00 06/20/20 09:19 Famotidine 20 Mg Tab PO 20 mg BID KANDACE Administration Gabapentin 300 mg 06/19/20 21:00 06/19/20 20:17 Gabapentin 300 Mg Cap PO 300 mg HS KANDACE Administration Cefepime HCl 2 gm/ Sodium 100 mls @ 100 mls/hr 06/19/20 18:00 06/20/20 09:19 Chloride IVPB 100 mls 0200,1000,1800 KANDACE Administration Sodium Chloride 1,000 mls @ 50 mls/hr 06/19/20 18:15 06/20/20 02:47 Normal Saline 0.9% IV 1,000 mls .Q20H KANDACE Administration Vancomycin HCl 1.5 gm/ Device 300 mls @ 200 mls/hr 06/20/20 04:00 06/20/20 03:30 IVPB 300 mls 0400 KANDACE Administration - Exam General Appearance: NAD, awake alert Heart: RRR, no murmur, no gallops, no rubs, normal peripheral pulses Respiratory: CTAB, no wheezes, no rales, no ronchi, normal chest expansion, no tachypnea, normal percussion Gastrointestinal: soft, non-distended, normal bowel sounds, tender to palpation Gastrointestinal - other findings: Palpable mass in the right lower abdomen that is tender to palpation Extremities: no cyanosis, no clubbing Extremities - other findings: Trace edema Skin: normal turgor Neurological: cranial nerve grossly intact, normal sensation to touch, no weakness, no focal deficits, no new deficit Musculoskeletal: normal tone, normal strength, no muscle wasting Psychiatric: normal affect, normal behavior, A&O x 3 Hosp A/P (1) Neutropenic fever Code(s): D70.9 - NEUTROPENIA, UNSPECIFIED; R50.81 - FEVER PRESENTING WITH CONDITIONS CLASSIFIED ELSEWHERE Status: Acute (2) Primary sarcoma of intra-abdominal site Code(s): C49.4 - MALIGNANT NEOPLASM OF CONNECTIVE AND SOFT TISSUE OF ABDOMEN Status: Acute (3) Hyperlipidemia Code(s): E78.5 - HYPERLIPIDEMIA, UNSPECIFIED Status: Acute - Plan Neutropenic fever: Patient's ANC is still quite low today. Did not move in an upward direction significantly. We will continue with broad-spectrum antibiotic coverage with vancomycin and cefepime. Follow-up cultures. UA and urine culture were apparently done at the oncology clinic. We will try to follow-up on those. Co cherie for possible urinary tract infection given that she had apparently had some discoloration of the urine at that time and has recently had a urinary tract infection. Sarcoma of the abdomen: Patient has some pain associated with this. She is status post her first course of Adriamycin. Will increase her Burgin and her morphine dosing. Oncology consult. Hyperlipidemia: Continue statin.
[2020-06-20] MEDS ORDERED: Senokot 8.6 MG TAB PO PRN (18:25)
[2020-06-20] MEDS ORDERED: Milk Of Magnesia 30 ML UDCUP PO PRN (18:26)
[2020-06-20] MEDS ORDERED: Polyethylene Glycol 3350 17 GM Packet PO PRN (18:26)
[2020-06-20] MEDS: Gabapentin 300 MG CAP PO SCH (20:11)
[2020-06-20] MEDS: Atorvastatin Calcium 10 MG TAB PO SCH (20:11)
--- NOTE | 2020-06-20 20:11 | CON ---
DATE OF CONSULTATION: REASON FOR CONSULTATION: Neutropenic fever. HISTORY OF PRESENT ILLNESS: Ms. Malodnado is a 69-year-old female who was having abdominal pain and weakness over the past 4 months. She had 57-pound weight loss. She was eventually referred to GI and CT scan revealed a large mass in the abdomen and upper pelvis near the psoas muscle and ovary on that side. The biopsy showed a high-grade sarcoma. She was having severe pain and nausea. She saw MD Kaur who recommended high-dose Adriamycin with Zinecard neoadjuvantly with restaging after 2 cycles. She received her first dose on Friday, June 12. She did receive Neulasta support. She tolerated the infusion with no issues. This past Friday, she began having sharp pelvic pain radiating to her low back, rated at 10/10. She also had a fever as high as 103. She did not go to the emergency room, but presented to our clinic on Friday. She reported pain with urination. The patient was in obvious distress in our clinic with pelvic tenderness and guarding. She had bilateral CVA tenderness. CBC showed a white count of 1.4 and hemoglobin is 6.9 with her ANC of 0.2. She was admitted to this facility for further workup and treatment. She did receive 2 units of packed RBCs. She received cefepime in the clinic, which was continued here as well as vancomycin. She has continued to have pain, but otherwise is feeling better. Her pain medication has been increased and she is resting comfortably at this time. PAST MEDICAL HISTORY: 1. 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 2. Hypertension. 3. Hyperlipidemia. PAST SURGICAL HISTORY: 1. Biopsy. 2. Cholecystectomy. 3. Hysterectomy. 4. Back surgery. ALLERGIES: NO KNOWN DRUG ALLERGIES. HOME MEDICATIONS: 1. Duloxetine. 2. Folic acid. 3. Gabapentin. 4. Losartan. 5. Remeron. 6. Ventolin. 7. Zofran. 8. Hydrocodone. 9. Compazine. FAMILY HISTORY: Noncontributory. SOCIAL HISTORY: , lives with her spouse; 50+ year pack smoking, quit 2 months ago. No alcohol or illicit drug use. REVIEW OF SYSTEMS: Positive for weight loss, abdominal pain, constipation, and weakness in her legs. Otherwise, negative. PHYSICAL EXAMINATION: VITAL SIGNS: Temperature is 99.9, pulse is 106, respiratory rate 18, BP is 131/63. She is 95% on room air. GENERAL: A well-developed, well-nourished female, in mild distress. HEENT: Normocephalic, atraumatic. Pupils are equal and reactive to light. No oral lesions. NECK: Supple. CARDIOVASCULAR: Regular rate and rhythm. She is tachycardic. LUNGS: Clear. ABDOMEN: Tender in the right lower quadrant. Bowel sounds are positive. EXTREMITIES: No clubbing or cyanosis. SKIN: no rash. HEMATOLOGIC: No petechiae or purpura. NEUROLOGIC: Nonfocal. PERTINENT LABORATORY DATA AND X-RAYS: Current WBC is 1.3, hemoglobin 8.0, hematocrit 26.4, and platelet count is 130,000. She has 7% neutrophils, 6% bands, and 79% lymphocytes. Sodium is 136, potassium 3.9, chloride 102, CO2 is 28, BUN is 10, creatinine is 0.6, calcium 8, bilirubin 1.4, AST 16, ALT is 10, alkaline phosphatase is 130. Serum total protein is 5, albumin 2.2, globulin 2.8. COVID is negative. Chest x-ray showed borderline to minimal cardiomegaly. ASSESSMENT: 1. Neutropenic fever. 2. High-grade sarcoma, status post cycle 1 of Adriamycin chemotherapy. 3. Abdominal pain, likely secondary to sarcoma. DISCUSSION: The patient has been seen in conjunction with myself and Dr. García. Her UA from the clinic shows bilirubin and 1+ bacteria. It is otherwise negative. Her pain is improved with increased dose of Hoople. She is now resting comfortably. Her white count has mildly improved overnight. However, she did receive Neulasta and expected to improve over the next 24 to 48 hours. She remains on empiric antibiotics. We will consider imaging if her pain is not improved. We will recheck her CBC in the morning and allow the patient to eat. Thank you for the consult. Job ID: [id number]
[2020-06-21] MEDS: Cefepime 2 GM in Sodium Chloride 0.9% 100 ML IVPB SCH ×2 (02:06→09:07)
[2020-06-21] MEDS: Sodium Chloride 0.9% 1,000 ML IV SCH (02:09)
[2020-06-21] MEDS: Vancomycin 1.5 GRAM/300 ML BAG 1.5 GM in Premix Bag 1 BAG IVPB SCH (03:59)
[2020-06-21] MEDS: HYDROcodone/Acetaminophen 10/325 mg Tablet PO PRN ×2 (04:03→20:24)
[2020-06-21 06:28] LABS: Hemoglobin 8.3 g/dL (12.0-16.0); Mean Corpuscular HGB CONC 29.8 g/dL (32.0-36.0); Mean Corpuscular Hemoglobin 25.6 pg (27.0-31.0); Mean Platelet Volume 8.8 fL (7.4-10.4); Platelet Count 133 thou/uL (130-400); RBC Distribution Width 16.3 % (11.5-14.5); Red Blood Cell (RBC) Count 3.22 mill/uL (4.20-5.40); White Blood Cell (WBC) Count 1.8 thou/uL (4.8-10.8)
[2020-06-21 06:45] LABS: Band 12 % (5-11); Eosinophils 3 % (0-10); Lymphocytes 61 % (21-51); MDiff Complete? YES; Monocytes 7 % (0-10); Neutrophil 17 % (42-75); RBC Morphology Normal
[2020-06-21] MEDS: DULoxetine 60 MG CAP PO SCH (09:06)
[2020-06-21] MEDS: Famotidine 20 MG TAB PO SCH ×2 (09:06→20:25)
--- NOTE | 2020-06-21 10:08 | PDOC.HOSPP ---
- Subjective Encounter Date: 06/21/20 Encounter Time: 09:55 Subjective: f/u for neutropenic fever with negative Ucx/blood cx to date on Cefepime/Vancomycin. States feeling ok except no BM x 3 days. Took Miralax and Senokot but no BM. - Objective Vital Signs & Weight: Vital Signs (12 hours) Temp Pulse Resp BP Pulse Ox 06/21/20 08:00 97.8 F 108 H 16 108/62 97 Weight Admit Weight 214 lb Weight 214 lb I&O: 06/20/20 06/21/20 06/22/20 06:59 06:59 06:59 Intake Total 2890 1625 Balance 2890 1625 Result Diagrams: 06/21/20 05:24 06/20/20 06:00 Additional Labs: Microbiology 06/19/20 18:20 Venous blood - Left Hand Blood Culture - Preliminary Specimen has been received and culture in progress. No Growth to date. 06/19/20 18:04 Venous blood - Right Arm Blood Culture - Preliminary Specimen has been received and culture in progres s. No Growth to date. 06/19/20 16:16 Urine clean catch Urine Culture - Preliminary NO GROWTH AT 24 HOURS Radiology Reviewed by me: Yes (PCXR - no acute infiltrate) Hospitalist ROS - Medication Medications: Active Medications Generic Name Dose Route Start Last Admin Trade Name Freq PRN Reason Stop Dose Admin Hydrocodone Bitart/Acetaminophen 1 tab 06/20/20 12:24 06/21/20 09:04 Hydrocodone/Acetaminophen 10/325 Mg Tablet PO 1 tab Q4H PRN Administration Mild-Moderate Pain (1-5) Hydrocodone Bitart/Acetaminophen 2 tab 06/20/20 12:24 06/21/20 04:03 Hydrocodone/Acetaminophen 10/325 Mg Tablet PO 2 tab Q4H PRN Administration Moderate to Severe Pain (6-10) Atorvastatin Calcium 10 mg 06/19/20 21:00 06/20/20 20:11 Atorvastatin Calcium 10 Mg Tab PO 10 mg HS KANDACE Administration Duloxetine HCl 60 mg 06/20/20 09:00 06/21/20 09:06 Duloxetine 60 Mg Cap PO 60 mg DAILY KANDACE Administration Famotidine 20 mg 06/19/20 21:00 06/21/20 09:06 Famotidine 20 Mg Tab PO 20 mg BID KANDACE Administration Gabapentin 300 mg 06/19/20 21:00 06/20/20 20:11 Gabapentin 300 Mg Cap PO 300 mg HS KANDACE Administration Magnesium Hydroxide 30 ml 06/20/20 18:26 06/20/20 20:11 Milk Of Magnesia 30 Ml Udcup PO 30 ml DAILYPRN PRN Administration Constipation Morphine Sulfate 4 mg 06/20/20 12:25 06/20/20 20:14 Morphine 2 Mg/Ml Vial SLOW IVP 4 mg Q4H PRN Administration BREAKTHRU PAIN (6-10)/NPO Polyethylene Glycol 17 gm 06/20/20 18:26 06/21/20 09:02 Polyethylene Glycol 3350 17 Gm Packet PO 17 gm DAILYPRN PRN Administration Constipation - Exam General Appearance: NAD, awake alert Eye: PERRL, anicteric sclera ENT: normocephalic atraumatic, no oropharyngeal lesions Neck: supple, symmetric, no JVD, no thyromegaly, no lymphadenopathy Heart: RRR, no gallops, no rubs, normal peripheral pulses Heart - other findings: S1, S2 Respiratory: CTAB, no wheezes, no rales, no ronchi, normal chest expansion Gastrointestinal: soft, non-distended, normal bowel sounds, no guarding, no rigidity Gastrointestinal - other findings: mild TTP in RLQ Extremities: no cyanosis, 1+ LE edema Skin: normal turgor, no lesions Neurological: cranial nerve grossly intact, no new deficit Musculoskeletal: normal tone, normal strength, no muscle wasting Psychiatric: normal affect, A&O x 3 Hosp A/P (1) Neutropenic fever Code(s): D70.9 - NEUTROPENIA, UNSPECIFIED; R50.81 - FEVER PRESENTING WITH CONDITIONS CLASSIFIED ELSEWHERE Status: Acute Plan: Initial Blood/Ucx negative to date, d/c Vancomycin/Cefepime, start Omnicef (2) Primary sarcoma of intra-abdominal site Code(s): C49.4 - MALIGNANT NEOPLASM OF CONNECTIVE AND SOFT TISSUE OF ABDOMEN Status: Acute Plan: Continue outpt chemotherapy after d/c, pain control with Cana (3) Constipation Code(s): K59.00 - CONSTIPATION, UNSPECIFIED Status: Acute Qualifiers: Constipation type: slow transit constipation Qualified Code(s): K59.01 - Slow transit constipation Plan: Dulcolax supp, Senokot 2 tabs now, Mag citrate (4) Pancytopenia Code(s): D61.818 - OTHER PANCYTOPENIA Status: Chronic Plan: Secondary to chemotherapy, serial monitoring, s/p 2u PRBC's - Plan continue antibiotics, social science professor, out of bed/ambulate, DVT proph w/SCDs Stable currently Saline lock IVF's Mag citrate/Senokot/Dulcolax supp OOB/ambulate D/C Vancomycin/Cefepime Start Omnicef 300mg BID AM lab: CBC Likely home in am
[2020-06-21] MEDS ORDERED: Senokot 8.6 MG TAB PO SCH (10:15)
[2020-06-21] MEDS ORDERED: Magnesium Citrate 300 ML BOT PO SCH (10:15)
[2020-06-21] MEDS: Morphine 2 MG/ML VIAL SLOW IVP PRN (14:06)
[2020-06-21] MEDS: Bisacodyl 10 MG SUPP PR SCH ×2 (14:10→20:26)
--- NOTE | 2020-06-21 16:32 | PDOC.MOPN ---
Interval History: feels "75% better". Still has occasional abdominal pain. BM today. - Vital Signs Vital Signs: Vital Signs (12 hours) Temp Pulse Resp BP Pulse Ox 06/21/20 12:00 98.1 F 106 H 16 112/64 98 06/21/20 08:00 97.8 F 108 H 16 108/62 97 Weight Admit Weight 214 lb Weight 214 lb - Physical Exam General: Alert, Oriented x3, No acute distress HEENT: Atraumatic, PERRLA, EOMI, Mucous membr. moist/pink Lungs: Clear to auscultation, Normal air movement Cardiovascular: Regular rate, Normal S1, Normal S2, No murmurs, Gallops, Rubs Abdomen: Normal bowel sounds, Soft, No tenderness, No hepatospenomegaly, No masses Extremities: No clubbing, No cyanosis (2+ BLE edema), Normal pulses Skin: No rashes, No breakdown, No significant lesion Neurological: Normal gait, Normal speech, Strength at 5/5 X4 ext, Normal tone, Sensation intact, Cranial nerves 3-12 NL, Reflexes 2+ Psych/Mental Status: Mental status NL, Mood NL - Labs Result Diagrams: 06/21/20 05:24 06/20/20 06:00 Lab results: Laboratory Results - last 24 hr 06/21/20 05:24: WBC 1.8 L, RBC 3.22 L, Hgb 8.3 L, Hct 27.7 L, MCV 86.0, MCH 25.6 L, MCHC 29.8 L, RDW 16.3 H, Plt Count 133, MPV 8.8, Neutrophils % (Manual) 17 L, Band Neuts % (Manual) 12 H, Lymphocytes % (Manual) 61 H, Monocytes % (Manual) 7, Eosinophils % (Manual) 3, Lymphocytes # Not Reportable, RBC Morph Comment Normal Status: lab reviewed by me A/P - Problem (1) Neutropenic fever Current Visit: Yes Code(s): D70.9 - NEUTROPENIA, UNSPECIFIED; R50.81 - FEVER PRESENTING WITH CONDITIONS CLASSIFIED ELSEWHERE Status: Acute (2) Primary sarcoma of intra-abdominal site Current Visit: Yes Code(s): C49.4 - MALIGNANT NEOPLASM OF CONNECTIVE AND SOFT TISSUE OF ABDOMEN Status: Acute - Plan Plan: 1. WBC trending up 2. pain controlled 3. c/o constipation, laxative tonigh 4. switched to oral omnicef 5. home in am is abdominal pain improved.
[2020-06-21] MEDS: Cefdinir 300 MG CAP PO SCH (20:25)
[2020-06-21] MEDS: Gabapentin 300 MG CAP PO SCH (20:25)
[2020-06-21] MEDS: Atorvastatin Calcium 10 MG TAB PO SCH (20:25)
[2020-06-22] MEDS: Bisacodyl 10 MG SUPP PR SCH (02:34)
[2020-06-22 06:20] LABS: Hemoglobin 8.1 g/dL (12.0-16.0); Mean Corpuscular HGB CONC 29.9 g/dL (32.0-36.0); Mean Corpuscular Hemoglobin 25.5 pg (27.0-31.0); Mean Corpuscular Volume 85.2 fL (78.0-98.0); Mean Platelet Volume 8.5 fL (7.4-10.4); Platelet Count 146 thou/uL (130-400); RBC Distribution Width 16.1 % (11.5-14.5); Red Blood Cell (RBC) Count 3.17 mill/uL (4.20-5.40); White Blood Cell (WBC) Count 2.7 thou/uL (4.8-10.8)
[2020-06-22 06:44] LABS: Band 13 % (5-11); Eosinophils 5 % (0-10); Lymphocytes 65 % (21-51); MDiff Complete? YES; Monocytes 6 % (0-10); Neutrophil 11 % (42-75)
[2020-06-22 06:57] VITALS: BP 119/57; TEMP 98.5
[2020-06-22] MEDS: HYDROcodone/Acetaminophen 10/325 mg Tablet PO PRN (10:03)
[2020-06-22] MEDS: Cefdinir 300 MG CAP PO SCH (10:03)
[2020-06-22] MEDS: DULoxetine 60 MG CAP PO SCH (10:03)
[2020-06-22] MEDS: Famotidine 20 MG TAB PO SCH (10:04)
--- NOTE | 2020-06-22 10:09 | PDOC.MOPN ---
Interval History: Patient has intermittent abdominal cramping. BM last night. No fevers. - Vital Signs Vital Signs: Vital Signs (12 hours) Temp Pulse Resp BP Pulse Ox 06/22/20 06:56 98.5 F 101 H 20 119/57 L 94 L Weight Admit Weight 214 lb Weight 214 lb - Physical Exam General: Alert, Oriented x3, No acute distress HEENT: Atraumatic, PERRLA, EOMI, Mucous membr. moist/pink Lungs: Clear to auscultation, Normal air movement Cardiovascular: Regular rate, Normal S1, Normal S2, No murmurs, Gallops, Rubs Abdomen: Other Neurological: Normal gait, Normal speech, Strength at 5/5 X4 ext, Normal tone, Sensation intact, Cranial nerves 3-12 NL, Reflexes 2+ - Labs Result Diagrams: 06/22/20 06:00 06/20/20 06:00 Lab results: Laboratory Results - last 24 hr 06/22/20 06:00: WBC 2.7 L, RBC 3.17 L, Hgb 8.1 L, Hct 27.0 L, MCV 85.2, MCH 25.5 L, MCHC 29.9 L, RDW 16.1 H, Plt Count 146, MPV 8.5, Neutrophils % (Manual) 11 L, Band Neuts % (Manual) 13 H, Lymphocytes % (Manual) 65 H, Monocytes % (Manual) 6, Eosinophils % (Manual) 5, Lymphocytes # Not Reportable Status: lab reviewed by me A/P - Problem (1) Neutropenic fever Current Visit: Yes Code(s): D70.9 - NEUTROPENIA, UNSPECIFIED; R50.81 - FEVER PRESENTING WITH CONDITIONS CLASSIFIED ELSEWHERE Status: Acute (2) Primary sarcoma of intra-abdominal site Current Visit: Yes Code(s): C49.4 - MALIGNANT NEOPLASM OF CONNECTIVE AND SOFT TISSUE OF ABDOMEN Status: Acute - Plan Plan: 1. ok to dc home 2. Galva rx sent to pharmacy 3. follow-up next week.
--- NOTE | 2020-06-22 10:52 | DIS ---
DATE OF ADMISSION: 06/19/2020 DATE OF DISCHARGE: 06/22/2020 DISCHARGE DIAGNOSES: 1. Neutropenic fever, resolved. 2. Primary sarcoma of the abdomen. 3. Constipation, resolved. 4. Pancytopenia. CONSULTATIONS: Dr. García with Medical Oncology Service. PERTINENT LABORATORY AND X-RAY FINDINGS: Alkaline phosphatase ranged between 130 to 136, albumin ranged between 2.2 to 2.7. CBC showed a white blood cell count ranged between 1.3 to 2.7, hemoglobin ranged between 8.0 to 8.3. COVID-19 PCR not detected, 06/19/2020. Blood cultures x2 dated 06/19/2020, showed no growth at 48 hours. Portable chest x-ray dated 06/19/2020, showed no acute cardiopulmonary process. HOSPITAL COURSE: The patient initially presented with persistent abdominal pain in the context of known sarcoma of the abdomen, currently undergoing chemotherapy at [facility] in [place], [place]. The patient was noted with febrile episode in conjunction with neutropenia and admitted for neutropenic fever. The patient was placed on broad-spectrum IV antibiotic therapy including vancomycin and cefepime and given general neutropenic precautions. Blood cultures were unrevealing and the patient clinically stabilized with supportive management. The patient did receive a bowel regimen due to constipation with successful bowel movement prior to discharge. Currently, the patient at baseline clinical status, tolerating regular oral intake with stable vital signs. I have examined the patient at the time of discharge and discussed followup instructions. The patient verbalized understanding and agreement, ready for discharge on 06/22/2020. DISCHARGE MEDICATIONS: 1. Duloxetine 60 mg p.o. daily. 2. Folic acid 1 mg p.o. daily. 3. Gabapentin 300 mg p.o. at bedtime. 4. Lovastatin 20 mg p.o. at bedtime. 5. Mirtazapine 15 mg p.o. at bedtime. 6. Ventolin HFA 2 puffs inhaled q.6 hours p.r.n. 7. Zofran 4 mg p.o. q.4 hours p.r.n. 8. [place] 10/325 mg 1 to 2 tablets p.o. q.4 hours p.r.n. pain. 9. Omnicef 300 mg p.o. b.i.d. x4 days. FOLLOWUP: The patient may follow up with Dr. Basilio Ames, primary care provider. The patient will follow up with Dr. aMggie García, with Medical Oncology Service. CONDITION ON DISCHARGE: Stable. ACTIVITY: Ad-storm. DIET: Regular. CODE STATUS: Full. DISPOSITION: To home, 06/22/2020. TIME SPENT: Total time preparing and coordinating discharge is 32 minutes. Job ID: [id number]
== END 2020-06-22 12:18 | disposition home or self-care (01) | DRG 809 ==
LOC: EDSTATUS 16:12 → ONC 16:36
PROVIDERS: ADMIT Student in an Organized Health Care Education/Training Program; ATTEND Student in an Organized Health Care Education/Training Program
DX: D70.9 Neutropenia, unspecified (principal); C49.4 Malignant neoplasm of connective and soft tissue of abdomen; R50.81 Fever presenting with conditions classified elsewhere; I10 Essential (primary) hypertension; K59.00 Constipation, unspecified; D61.810 Antineoplastic chemotherapy induced pancytopenia; F32.9 Major depressive disorder, single episode, unspecified; C76.2 Malignant neoplasm of abdomen; E78.5 Hyperlipidemia, unspecified; Z20.828 Contact with and (suspected) exposure to other viral communicable diseases; Z87.442 Personal history of urinary calculi; Z90.49 Acquired absence of other specified parts of digestive tract; Z90.710 Acquired absence of both cervix and uterus; Z87.891 Personal history of nicotine dependence; Z79.899 Other long term (current) drug therapy
CPT/HCPCS: 36415; 36430; 71045; 80053; 81001; 85025; 86850; 86900; 86901; 87040; 87086; 87635; J0692; J2270; J3370; J3490; P9016; U0003

== ENCOUNTER 2020-07-28 09:04 | Day surgery (SDC) | payer MEDICARE, BC ==
[2020-07-28] MEDS ORDERED: Sodium Chloride 0.9% 30 ML ONE (09:18)
[2020-07-28] MEDS ORDERED: Acetaminophen 500 MG TAB PO PRN (10:33)
[2020-07-28] MEDS ORDERED: diphenhydrAMINE 25 MG CAP PO PRN (10:34)
[2020-07-28] MEDS ORDERED: Furosemide 40 MG/4 ML VIAL SLOW IVP SCH (10:45)
[2020-07-28 14:08] VITALS: BP 132/69; TEMP 97.6
== END 2020-07-28 14:09 | disposition home or self-care (01) ==
LOC: ONC/OP 09:04
PROVIDERS: ATTEND Internal Medicine Hematology & Oncology
PROC: 30233N1 Transfusion of Nonautologous Red Blood Cells into Peripheral Vein, Percutaneous Approach (ICD-10-PCS; principal; 2020-07-28)
DX: D64.9 Anemia, unspecified (principal); D69.6 Thrombocytopenia, unspecified
CPT/HCPCS: 36430; 86850; 86900; 86901; 96374; J1642; J1940; P9016; Q0163

== ENCOUNTER 2020-08-08 14:14 | Outpatient (CLI) | payer MEDICARE, BC ==
[~2020-08-08 14:14] MED LIST changes: +Iopamidol 370 76% 100 ML VIAL ONE; -Lidocaine 1% PF 5 ML VIAL ONE; -PROPOFOL 200 MG/20 ML VIAL ONE
--- NOTE | 2020-08-08 15:00 | CT ---
CT ANGIOGRAM THORAX WITH IV CONTRAST AND 3-D RECONSTRUCTIONS CLINICAL INDICATION: Shortness of breath. Low oxygen saturations during chemotherapy treatment today. COMPARISON: 04/26/2020 FINDINGS: Pulmonary arteries: No filling defects are seen in the pulmonary arteries to suggest a pulmonary embo lawrence. Aorta: Thoracic aorta is normal in caliber without evidence of an aortic dissection. Minimal scattere d vascular ossification are seen in the aortic arch as well as involving the proximal abdominal aorta. Lungs: Scattered linear densities are seen throughout the lungs likely attributable to atelectasis an d/or possibly areas of mild scarring. No consolidation or pleural fluid is seen. A tiny subpleural 2 mm nodule is seen in the superior segment right lower lobe posteriorly. This is a stable finding co mpared to prior study. No additional pulmonary nodule is seen, and there is no evidence of a mass. Mediastinum: No enlarged lymph nodes are seen by CT size criteria. A right subclavian Mediport cathet er remains in place with tip in proximal SVC. Thyroid gland: Normal in appearance where visualized. Osseous structures: Degenerative changes are seen in the spine. No suspicious lytic or sclerotic osse ous lesions are identified. Chest wall: No abnormality visualized. Upper abdomen: Nonobstructing superior pole left renal calculus is again seen. Postcholecystectomy ch anges are noted. IMPRESSION: 1. No CT evidence of a pulmonary embolus. 2. Nonspecific tiny 2 mm subpleural right lower lobe pulmonary nodule. 3. Nonobstructing left renal calculus.
== END 2020-08-08 14:15 | disposition home or self-care (01) ==
LOC: CT 14:14
PROVIDERS: ATTEND Internal Medicine Hematology & Oncology
DX: C49.8 Malignant neoplasm of overlapping sites of connective and soft tissue (principal); R06.02 Shortness of breath; R91.1 Solitary pulmonary nodule; N20.0 Calculus of kidney
CPT/HCPCS: 71275; 80053; 82248; 83615; 84100; 84550; Q9967

== ENCOUNTER 2020-08-23 08:26 | Day surgery (SDC) | payer MEDICARE, BC ==
[2020-08-23] MEDS ORDERED: Acetaminophen 500 MG TAB PO SCH (08:45)
[2020-08-23] MEDS ORDERED: diphenhydrAMINE 25 MG CAP PO SCH (08:45)
[2020-08-23] MEDS ORDERED: Sodium Chloride 0.9% 20 ML ONE (09:43)
[2020-08-23 13:14] VITALS: BP 116/58; TEMP 98.8
== END 2020-08-23 13:15 | disposition home or self-care (01) ==
LOC: ONC/OP 08:26
PROVIDERS: ATTEND Internal Medicine Hematology & Oncology
PROC: 30233N1 Transfusion of Nonautologous Red Blood Cells into Peripheral Vein, Percutaneous Approach (ICD-10-PCS; principal; 2020-08-23)
DX: D64.9 Anemia, unspecified (principal); D69.6 Thrombocytopenia, unspecified
CPT/HCPCS: 36430; 86850; 86900; 86901; J1642; P9016; Q0163

== ENCOUNTER 2020-09-07 08:26 | Day surgery (SDC) | payer MEDICARE, BC ==
[2020-09-07] MEDS ORDERED: diphenhydrAMINE 25 MG CAP PO SCH (09:00)
[2020-09-07] MEDS ORDERED: Acetaminophen 500 MG TAB PO SCH (09:00)
[2020-09-07] MEDS ORDERED: Sodium Chloride 0.9% 20 ML ONE (09:21)
[2020-09-07 15:20] LABS: #Lymphocytes 2.1 thou/uL (1.20-3.40); #Monocytes 0.5 thou/uL (0.11-0.59); #Neutrophils 9.8 thou/uL (1.40-6.50); %Basophils 0.2 % (0.0-1.0); %Eosinophils 0.2 % (0.0-10.0); %Lymphocytes 16.6 % (21.0-51.0); %Monocytes 4.1 % (0.0-10.0); %Neutrophils 78.9 % (42.0-75.0); Hemoglobin 8.9 g/dL (12.0-16.0); Mean Corpuscular HGB CONC 31.6 g/dL (32.0-36.0); Mean Corpuscular Hemoglobin 29.5 pg (27.0-31.0); Mean Corpuscular Volume 93.2 fL (78.0-98.0); Platelet Count 341 thou/uL (130-400); RBC Distribution Width 18.2 % (11.5-14.5); Red Blood Cell (RBC) Count 3.01 mill/uL (4.20-5.40); White Blood Cell (WBC) Count 12.4 thou/uL (4.8-10.8)
[2020-09-07 16:04] VITALS: BP 116/58; TEMP 98
== END 2020-09-07 16:05 | disposition home or self-care (01) ==
LOC: ONC/OP 08:26
PROVIDERS: ATTEND Internal Medicine Hematology & Oncology
PROC: 30233N1 Transfusion of Nonautologous Red Blood Cells into Peripheral Vein, Percutaneous Approach (ICD-10-PCS; principal; 2020-09-07)
DX: D64.9 Anemia, unspecified (principal); D69.6 Thrombocytopenia, unspecified
CPT/HCPCS: 36430; 85025; 86850; 86900; 86901; J1642; P9016; Q0163

== ENCOUNTER 2020-09-26 10:47 | Day surgery (SDC) | payer MEDICARE, BC ==
[2020-09-26] MEDS ORDERED: diphenhydrAMINE 25 MG CAP PO SCH (11:15)
[2020-09-26] MEDS ORDERED: Furosemide 20 MG/2 ML VIAL SLOW IVP SCH (11:15)
[2020-09-26] MEDS ORDERED: Acetaminophen 500 MG TAB PO SCH (11:15)
[2020-09-26] MEDS ORDERED: Sodium Chloride 0.9% 20 ML ONE (11:31)
[2020-09-26 17:22] VITALS: BP 125/54; TEMP 98
[2020-09-26 17:41] LABS: #Lymphocytes 0.6 thou/uL (1.20-3.40); #Monocytes 0.4 thou/uL (0.11-0.59); #Neutrophils 6.4 thou/uL (1.40-6.50); %Eosinophils 0.1 % (0.0-10.0); %Monocytes 5.4 % (0.0-10.0); %Neutrophils 86.6 % (42.0-75.0); Hemoglobin 9.5 g/dL (12.0-16.0); Mean Corpuscular HGB CONC 30.7 g/dL (32.0-36.0); Mean Corpuscular Volume 94.4 fL (78.0-98.0); Mean Platelet Volume 6.5 fL (7.4-10.4); Platelet Count 261 thou/uL (130-400); RBC Distribution Width 17.4 % (11.5-14.5); Red Blood Cell (RBC) Count 3.27 mill/uL (4.20-5.40); White Blood Cell (WBC) Count 7.4 thou/uL (4.8-10.8)
== END 2020-09-26 17:24 | disposition home or self-care (01) ==
LOC: ONC/OP 10:47
PROVIDERS: ATTEND Nurse Practitioner Acute Care
PROC: 30233N1 Transfusion of Nonautologous Red Blood Cells into Peripheral Vein, Percutaneous Approach (ICD-10-PCS; principal; 2020-09-26)
DX: D64.9 Anemia, unspecified (principal); D69.6 Thrombocytopenia, unspecified
CPT/HCPCS: 36430; 85025; 86850; 86900; 86901; 96375; J1642; J1940; P9016; Q0163

== ENCOUNTER 2020-12-08 18:33 | Day surgery (SDC) | payer MEDICARE, BC ==
[2020-12-08] MEDS ORDERED: Acetaminophen 500 MG TAB PO SCH (19:30)
[2020-12-08] MEDS ORDERED: diphenhydrAMINE 25 MG CAP PO SCH (19:30)
[2020-12-08 22:28] VITALS: TEMP 97.7
[2020-12-08 23:29] VITALS: BP 118/58
[2020-12-08 23:41] LABS: #Eosinphils 0.1 thou/uL (0.0-0.7); #Lymphocytes 1.3 thou/uL (1.20-3.40); #Monocytes 0.8 thou/uL (0.11-0.59); #Neutrophils 5.5 thou/uL (1.40-6.50); %Basophils 0.4 % (0.0-1.0); %Eosinophils 1.6 % (0.0-10.0); %Lymphocytes 16.4 % (21.0-51.0); %Monocytes 9.9 % (0.0-10.0); %Neutrophils 71.8 % (42.0-75.0); Hemoglobin 7.9 g/dL (12.0-16.0); Mean Corpuscular HGB CONC 31.7 g/dL (32.0-36.0); Mean Corpuscular Hemoglobin 31.3 pg (27.0-31.0); Mean Corpuscular Volume 98.6 fL (78.0-98.0); Mean Platelet Volume 6.5 fL (7.4-10.4); Platelet Count 281 thou/uL (130-400); RBC Distribution Width 15.4 % (11.5-14.5); Red Blood Cell (RBC) Count 2.54 mill/uL (4.20-5.40); White Blood Cell (WBC) Count 7.7 thou/uL (4.8-10.8)
== END 2020-12-08 23:33 | disposition home or self-care (01) ==
LOC: ONC/OP 18:33 → ONC 19:40 → ONC/OP 23:33
PROVIDERS: ATTEND Internal Medicine Hematology & Oncology
PROC: 30233N1 Transfusion of Nonautologous Red Blood Cells into Peripheral Vein, Percutaneous Approach (ICD-10-PCS; principal; 2020-12-08)
PROC: 30233N1 Transfusion of Nonautologous Red Blood Cells into Peripheral Vein, Percutaneous Approach (ICD-10-PCS; 2020-12-08)
DX: D64.9 Anemia, unspecified (principal); D69.6 Thrombocytopenia, unspecified
CPT/HCPCS: 36415; 36430; 36591; 36592; 85025; 86850; 86900; 86901; 96523; 99211; G0463; J1642; P9016; Q0163

== ENCOUNTER 2021-01-03 08:21 | Day surgery (SDC) | payer MEDICARE, BC ==
[2021-01-03] MEDS ORDERED: diphenhydrAMINE 25 MG CAP PO SCH (09:00)
[2021-01-03] MEDS ORDERED: Acetaminophen 500 MG TAB PO SCH (09:00)
[2021-01-03 11:56] VITALS: BP 116/55; TEMP 98.2
== END 2021-01-03 12:34 | disposition home or self-care (01) ==
LOC: ONC/OP 08:21
PROVIDERS: ATTEND Internal Medicine Hematology & Oncology
PROC: 30233N1 Transfusion of Nonautologous Red Blood Cells into Peripheral Vein, Percutaneous Approach (ICD-10-PCS; principal; 2021-01-03)
DX: D64.9 Anemia, unspecified (principal)
CPT/HCPCS: 36430; 86850; 86900; 86901; P9016; Q0163

== ENCOUNTER 2021-02-26 13:53 | Outpatient (CLI) | payer MEDICARE, BC ==
[2020-05-03 12:30] LABS: SARS-CoV-2 MS2 Positive; SARS-CoV-2 N Gene Negative; SARS-CoV-2 S Gene Negative; SARS-CoV-2 by NAA Not Detected (NotDetected); SARS-CoV-2 orf1ab Negative
[2021-02-26 15:02] LABS: Hemoglobin 8.7 g/dL (12.0-15.5); Mean Corpuscular HGB CONC 28.3 g/dL (32.0-36.0); Mean Corpuscular Hemoglobin 26.7 pg (27.0-33.0); Mean Corpuscular Volume 94.2 fl (81.6-98.3); Mean Platelet Volume 8.6 fl (7.4-10.4); Platelet Count 442 10x3/uL (150-450); RBC Distribution Width 16.1 % (11.5-14.5); Red Blood Cell (RBC) Count 3.26 10x6/uL (3.90-5.03); White Blood Cell (WBC) Count 6.5 10x3/uL (3.5-10.5)
[2021-02-26 15:17] LABS: PTT 30.4 sec (22.0-33.0); Prothrombin Time 11.2 sec (9.5-12.1)
[2021-02-26 15:19] LABS: Anion Gap 16 mmol/L (10-20); BUN (Urea Nitrogen) 13 mg/dL (9.8-20.1); Calc. Creatinine Clearance 0 mL/min (70-130); Calcium 8.8 mg/dL (7.8-10.44); Carbon Dioxide 31 mmol/L (23-31); Chloride 99 mmol/L (98-107); Glucose 120 mg/dL (83-110); Sodium 141 mmol/L (136-145)
[2021-02-26 15:24] LABS: Bilirubin Neg (Negative); Blood, Urine 10 (Negative); Clarity Clear (Clear); Glucose, Urine (Dipstick) Normal (Negative); Ketone, Urine Negative (Negative); Leukocyte 25 (Negative); Nitrite Negative (Negative); Protein, Urine (Dipstick) 30 mg/dl (Neg-Trace); Specific Gravity, Urine 1.005 (1.002-1.036); Urobilinogen Normal mg/dL (Less than 2)
[2021-02-26 15:41] LABS: Bacteria/HPF Rare-Few HPF (None Seen); Mucous/LPF Rare LPF (<2+); RBC/HPF 0-3 HPF (0-3); Squamous Epithelial 0-3 HPF (0-3); Transitional Epithelial 0-3 HPF (None Seen); WBC/HPF 0-3 HPF (0-3)
== END 2021-02-26 13:54 | disposition home or self-care (01) ==
LOC: LABBT 13:53
PROVIDERS: ATTEND Urology
DX: Z01.818 Encounter for other preprocedural examination (principal); N13.30 Unspecified hydronephrosis; C48.0 Malignant neoplasm of retroperitoneum; N20.0 Calculus of kidney; N39.3 Stress incontinence (female) (male); R39.15 Urgency of urination; C49.9 Malignant neoplasm of connective and soft tissue, unspecified
CPT/HCPCS: 80048; 81001; 85027; 85610; 85730; 87086; 93005; U0003; 93010

== ENCOUNTER 2021-03-01 10:03 | Day surgery (SDC) | payer MEDICARE, BC ==
[2021-02-28 09:18] VITALS: BMI 28.9
[2021-03-01] MEDS ORDERED: Levofloxacin 500 mg/D5W 100 ml Premix Bag ONE (11:14)
[2021-03-01] MEDS ORDERED: B & O ONE (11:23)
[2021-03-01] MEDS ORDERED: Iothalamate Meglumine 60% 50 ML VIAL FS ONE (11:23)
[2021-03-01] MEDS ORDERED: Fentanyl 100 MCG/2 ML VIAL ONE (11:50)
[2021-03-01] MEDS ORDERED: PROPOFOL 200 MG/20 ML VIAL ONE (11:55)
[2021-03-01] MEDS ORDERED: Lidocaine 1% PF 5 ML VIAL ONE (11:55)
[2021-03-01] MEDS ORDERED: Dexamethasone 20 MG/5 ML VIAL ONE (11:55)
[2021-03-02 14:38] LABS: Fungus Stain Final report (.)
== END 2021-03-01 14:10 | disposition home or self-care (01) ==
LOC: SDC 10:03
PROVIDERS: ATTEND Urology
PROC: 0T9680Z Drainage of Right Ureter with Drainage Device, Via Natural or Artificial Opening Endoscopic (ICD-10-PCS; principal; 2021-03-01)
DX: C48.0 Malignant neoplasm of retroperitoneum (principal); N13.30 Unspecified hydronephrosis; N39.3 Stress incontinence (female) (male); I10 Essential (primary) hypertension; M19.90 Unspecified osteoarthritis, unspecified site; D64.9 Anemia, unspecified; G47.30 Sleep apnea, unspecified; F17.210 Nicotine dependence, cigarettes, uncomplicated; Z79.899 Other long term (current) drug therapy
CPT/HCPCS: 52332; 74420; 87070; 87075; 87102; 87116; 87205; 87206 ×2; C2617; Q9961; 88112; 88305; J1100; J1956; J2704; J3010

== ENCOUNTER 2021-05-28 05:52 | Inpatient (IN) | payer MEDICARE, BC ==
[2021-05-28 07:57] LABS: ALT (SGPT) 12 U/L (8-55); AST (SGOT) 14 U/L (5-34); Albumin 1.9 g/dL (3.4-4.8); Alkaline Phosphatase 199 U/L (40-110); Anion Gap 15 mmol/L (10-20); BUN (Urea Nitrogen) 51 mg/dL (9.8-20.1); Bilirubin, Total 0.8 mg/dL (0.2-1.2); Calc. Creatinine Clearance 0 mL/min (70-130); Calcium 8.3 mg/dL (7.8-10.44); Carbon Dioxide 31 mmol/L (23-31); Chloride 91 mmol/L (98-107); Globulin 2.9 g/dL (2.4-3.5); Glucose 161 mg/dL (83-110); Potassium 4.8 mmol/L (3.5-5.1); Protein, Total 4.8 g/dL (5.8-8.1); Sodium 132 mmol/L (136-145)
[2021-05-28] MEDS ORDERED: Acetaminophen 650 MG Suppository PR PRN (08:33)
[2021-05-28] MEDS ORDERED: Ondansetron PF 4 MG/2 ML Vial IVP PRN (08:33)
[2021-05-28] MEDS ORDERED: Morphine 2 MG/ML VIAL ONE ×2 (08:51→17:57)
[2021-05-28] MEDS: Morphine 2 MG/ML VIAL SLOW IVP PRN ×2 (09:10→21:48)
[2021-05-28] MEDS: Sodium Chloride 0.9% 1,000 ML IV SCH ×2 (09:10→21:47)
[2021-05-28 09:31] VITALS: BMI 26.2
[2021-05-28 09:44] LABS: SARS-CoV-2 NAA Rapid Test Not Detected (NotDetected)
[2021-05-28] MEDS ORDERED: Vancomycin 1 GM in Premix Bag 1 BAG IVPB SCH (10:45)
[2021-05-28] MEDS ORDERED: Piperacillin/Tazobactam 3.375 GM in Sodium Chloride 0.9% 100 ML IVPB SCH (12:30)
[2021-05-28] MEDS: Nicotine 21 MG PATCH TD SCH (21:45)
[2021-05-28] MEDS: Heparin 5,000 UNITS/ML VIAL SC SCH ×2 (21:48→21:49)
[2021-05-28] MEDS: Piperacillin/Tazobactam 3.375 GM in Sodium Chloride 0.9% 100 ML IVPB SCH (21:49)
[2021-05-29] MEDS: Morphine 2 MG/ML VIAL SLOW IVP PRN ×2 (02:11→10:13)
[2021-05-29 05:24] LABS: Anion Gap 17 mmol/L (10-20); BUN (Urea Nitrogen) 56 mg/dL (9.8-20.1); Calc. Creatinine Clearance 28 mL/min (70-130); Calcium 7.9 mg/dL (7.8-10.44); Carbon Dioxide 30 mmol/L (23-31); Chloride 94 mmol/L (98-107); Glucose 104 mg/dL (83-110); Potassium 5.5 mmol/L (3.5-5.1); Sodium 135 mmol/L (136-145)
[2021-05-29 05:27] LABS: Anisocytosis SLIGHT = 6-15 cells (100X) (0-5/hpf); Band 15 % (5-11); Hypochromia SLIGHT = 6-15 cells (100X) (0-5/hpf); Lymphocytes 8 % (21-51); MDiff Complete? YES; Mean Corpuscular HGB CONC 31.3 g/dL (32.0-36.0); Mean Corpuscular Hemoglobin 28.6 pg (27.0-31.0); Mean Corpuscular Volume 91.4 fL (78.0-98.0); Mean Platelet Volume 7.7 fL (7.4-10.4); Neutrophil 75 % (42-75); Platelet Count 226 thou/uL (130-400); Platelet Morphology Comment Appears Adequate; RBC Distribution Width 15.8 % (11.5-14.5); Reactive Lymphocytes 2 % (0-10); Red Blood Cell (RBC) Count 2.79 mill/uL (4.20-5.40); Target Cells MODERATE= 6-15 cells (100X) (0-1/hpf); White Blood Cell (WBC) Count 23.6 thou/uL (4.8-10.8)
[2021-05-29] MEDS: Heparin 5,000 UNITS/ML VIAL SC SCH ×3 (10:12→20:49)
[2021-05-29] MEDS: Piperacillin/Tazobactam 3.375 GM in Sodium Chloride 0.9% 100 ML IVPB SCH ×2 (10:13→20:50)
[2021-05-29] MEDS: Nicotine 21 MG PATCH TD SCH (10:13)
[2021-05-29] MEDS ORDERED: GoLYTELY 4,000 ml Bottle PO SCH (12:15)
[2021-05-29] MEDS ORDERED: Fleet Enema 133 ML BOT PR SCH (13:45)
[2021-05-29] MEDS: Morphine 4 MG/ML VIAL SLOW IVP PRN ×3 (13:51→22:49)
[2021-05-29] MEDS: Sodium Chloride 0.9% 1,000 ML IV SCH ×2 (17:01→20:51)
[2021-05-29] MEDS: Ketorolac Tromethamine 30 MG/ML VIAL IVP PRN (18:06)
[2021-05-29] MEDS ORDERED: Morphine 2 MG/ML VIAL SLOW IVP SCH (20:34)
[2021-05-30] MEDS: Morphine 4 MG/ML VIAL SLOW IVP PRN ×3 (03:59→16:15)
[2021-05-30] MEDS: Piperacillin/Tazobactam 3.375 GM in Sodium Chloride 0.9% 100 ML IVPB SCH (09:18)
[2021-05-30] MEDS: Heparin 5,000 UNITS/ML VIAL SC SCH ×2 (09:18→14:14)
[2021-05-30] MEDS: Nicotine 21 MG PATCH TD SCH (09:18)
[2021-05-30 15:32] VITALS: BP 118/60; TEMP 97.9
[2021-05-30] MEDS: Ketorolac Tromethamine 30 MG/ML VIAL IVP PRN (16:18)
== END 2021-05-30 16:53 | disposition hospice, home (50) | DRG 843 ==
LOC: ERS 05:52 → SUATTDRO 05:52 → ERHOLD 06:38 → 2NO 07:25
PROVIDERS: ADMIT Internal Medicine; ATTEND Internal Medicine
PROC: 0D9670Z Drainage of Stomach with Drainage Device, Via Natural or Artificial Opening (ICD-10-PCS; principal; 2021-05-28)
DX: C48.0 Malignant neoplasm of retroperitoneum (principal); A41.9 Sepsis, unspecified organism; R65.20 Severe sepsis without septic shock; N17.9 Acute kidney failure, unspecified; E87.2 Acidosis; E87.1 Hypo-osmolality and hyponatremia; N13.0 Hydronephrosis with ureteropelvic junction obstruction; K56.7 Ileus, unspecified; Z66 Do not resuscitate; Z51.5 Encounter for palliative care; Z20.822 Contact with and (suspected) exposure to COVID-19; Z53.20 Procedure and treatment not carried out because of patient's decision for unspecified reasons; E78.5 Hyperlipidemia, unspecified; E78.00 Pure hypercholesterolemia, unspecified; N20.0 Calculus of kidney; F17.210 Nicotine dependence, cigarettes, uncomplicated; I10 Essential (primary) hypertension; K59.01 Slow transit constipation; E87.5 Hyperkalemia; Z87.442 Personal history of urinary calculi; Z79.899 Other long term (current) drug therapy; Z90.49 Acquired absence of other specified parts of digestive tract; Z90.710 Acquired absence of both cervix and uterus
CPT/HCPCS: 36415; 80048; 83605; 83880; 85025; 99285; J1642; J1644; J1885; J2270; J2543; J3490; J7050; U0002